=== PATIENT | female | born 1950 | race Caucasian/White ===

== ENCOUNTER 2017-03-25 18:09 | Inpatient (IN) ==
[2017-03-25] MEDS ORDERED: Acetaminophen 325 MG TABLET PO PRN ×3 (22:35→23:47)
[2017-03-25] MEDS ORDERED: 0.9 % Sodium Chloride 1,000 ML IVC SCH (23:45)
[2017-03-25] MEDS ORDERED: *HR* Morphine 2 MG/ML SYRINGE IVP PRN (23:47)
[2017-03-25] MEDS ORDERED: Ondansetron 4 MG/2 ML VIAL IVP PRN (23:47)
[2017-03-25] MEDS ORDERED: Naloxone 0.4 MG/ML INJ IVP PRN (23:47)
[2017-03-25] MEDS ORDERED: Mag Hydrox/Al Hydrox/Simeth 30 ML UDC PO PRN (23:47)
[2017-03-25] MEDS ORDERED: Dextrose Gel 15 GM PO PRN ×2 (23:53)
[2017-03-25] MEDS ORDERED: *HR* Dextrose 50 % in Water (Syg) 50 ML SYRINGE IVP PRN (23:53)
[2017-03-25] MEDS ORDERED: D5% in Water 1,000 ML IVC PRN (23:53)
[2017-03-25] MEDS ORDERED: Nitroglycerin 0.4 MG TAB.SUBL SL PRN (23:54)
[2017-03-25] MEDS ORDERED: Albuterol 2.5 MG/3 ML NEBULIZER IH PRN (23:54)
--- NOTE | 2017-03-26 00:05 | Internal Med History&Physical ---
Date of Encounter: 03/25/17 Time of Encounter: 23:50 Assessment and Plan (1) Pneumonia Current visit: Yes Status: Acute I could not find ER CXR report. Will order Bld CS and start IV Zosyn. Qualifiers: Pneumonia type: due to unspecified organism Laterality: unspecified laterality Lung location: unspecified part of lung Qualified Code(s): J18.9 - Pneumonia, unspecified organism (2) COPD (chronic obstructive pulmonary disease) Current visit: Yes Status: Acute Councelling provided to quit smoking. Duo Nebs ordered. Qualifiers: COPD type: COPD with acute exacerbation Qualified Code(s): J44.1 - Chronic obstructive pulmonary disease with (acute) exacerbation (3) UTI (urinary tract infection) Current visit: Yes Status: Acute Requesting blood and urine c/s. Start Zosyn. Patient says she is not allergic to PCN Qualifiers: Urinary tract infection type: site unspecified Hematuria presence: without hematuria Qualified Code(s): N39.0 - Urinary tract infection, site not specified (4) MANISHA (acute kidney injury) Current visit: Yes Status: Acute Creatinine 6.6. No previous record available and patient denies any prior hx. could be pre renal check US and morning hospitalist advice to call Nephrology in am. Request placed IVF challenge will be given, check CMP/Mg/PO4. (5) Diabetes 1.5, managed as type 2 Current visit: Yes Status: Acute Accu check qid with SSI. Hold home insulin for now. Internal Medicine - H&P: HPI Chief complaint: burning in urine, nausea, cough Admitted From: Home Plans for Post Hospital Care: Home History of present illness: Ms. Martinez is a 66 year old female pmhx significant for DM,HTN, COPD,GERD, Depression has hx of recurrent UTI and bladder surgeries. For last few days she has not been feeling good and has been having dysuria/oliguria. She also has Nausea/vomitting but no abdominal pain. She went to see her doctor who did not find any UTI. As she worsen she went to local ER and was noted to have pneumonia. Her UA shows leukocytes. No chest pain, fever, chills, syncope, hematuria or hempotysis. She has some cough and dyspnea now. Past Med Surg Social Fam HX - Past Medical History Medical history: coronary artery disease, CVA, diabetes, GERD, hyperlipidemia, hypertension, renal disease, other Psychiatric history: anxiety, depression, previous psychiatric hospitalization - Past Surgical History Surgical History: , cholecystectomy - Social History Smoking Status: Current every day smoker Smokeless Tobacco Status: No Alcohol use: none Drug use: none - Family History Mother Living Status: Age at : 68 Cause of : Uncontrolled DM Hx Family Cardiac Disorders: Yes (CHF, HTN, ID) Hx Family Respiratory Disorders: No Hx Family Cancer: No Hx Family GI Disorders: No Hx Family Genitourinary Disorders: No Hx Family Endocrine Disorder: Yes (DM) Hx Family Musculoskeletal Disorders: No Hx Family Neuromuscular Disorders: No Hx Family Neurologic Disorders: No Hx Family HEENT Disorders: No Hx Family Autoimmune Disorders: No Hx Family Reproductive Disorders: No Hx Family Psychosocial Disorders: No Hx Family Medical Disorders: No Internal Medicine - H&P: Meds Aspirin [Lo-Dose Aspirin EC] 81 mg PO DAILY 02/17/16 [History] Carvedilol [Coreg] 6.25 mg PO BID 02/17/16 [History] Insulin ASPART [NovoLOG] 0 unit SQ ACHS 02/17/16 [History] Insulin Glargine [Lantus] 20 unit SQ BID 02/17/16 [History] Lansoprazole [Prevacid] 30 mg PO DAILY 02/17/16 [History] Oxycodone HCl/Acetaminophen [Percocet 10-325 mg Tablet] 1 each PO QID 02/17/16 [ History] Pantoprazole Sodium [Protonix] 40 mg PO DAILY 02/17/16 [History] Promethazine [Phenergan] 25 mg PO Q6HR 02/17/16 [History] Amitriptyline [Elavil] 75 mg PO HS 11/15/16 [History] HYDROcodone/Acet 5/325 mg [Floyd 5-325 mg] 1 tab PO Q4H PRN #10 tab 11/15/16 [Rx ] Sulfamethoxazole/Trimeth DS [Bactrim DS] 1 each PO BID #20 tablet 11/15/16 [Rx] Humalog 03/25/17 [History] 3 Allergy/AdvReac Type Severity Reaction Status Date / Time gentamicin Allergy Unknown See Verified 11/15/16 20:24 Comments Penicillins Allergy Unknown See Verified 11/15/16 20:24 Comments sertraline [From Zoloft] Allergy Unknown See Verified 11/15/16 20:24 Comments tramadol Allergy Unknown See Verified 11/15/16 20:24 Comments trazodone Allergy Unknown See Verified 11/15/16 20:24 Comments atorvastatin [From Lipitor] Allergy tingling Verified 03/25/17 22:34 duloxetine [From Cymbalta] Allergy Numbness Verified 03/25/17 22:34 ketorolac [From Toradol] Allergy tingling Verified 03/25/17 22:34 morphine Allergy see comment Verified 03/25/17 22:34 ondansetron Allergy see comment Verified 03/25/17 22:34 [From Zofran (as hydrochloride)] prochlorperazine Allergy see comment Verified 03/25/17 22:34 All Systems PM: A 10-system review of systems was performed and is negative for pertinent findings except as documented above in the HPI. - Constitutional Constitutional: no chills, no fever(s), no night sweats - EENT Eyes: no change in vision, no discharge, no pain, no photophobia Ears: no ear discharge, no ear pain, no tinnitus Nose, mouth and throat: no dysphagia, no nasal discharge, no neck pain, no sore throat - Cardiovascular Cardiovascular ROS IM: no chest pain, no diaphoresis, no dyspnea, no lightheadedness, no palpitations, no syncope - Respiratory Respiratory: dyspnea, no wheezing, no excessive phlegm production - Gastrointestinal Gastrointestinal: nausea, vomiting, no abdominal pain, no diarrhea, no hematemesis, no hematochezia, no melena - Genitourinary Genitourinary: dysuria, no change in urinary stream, no flank pain, no hematuria - Musculoskeletal Musculoskeletal ROS IM: no numbness, no tingling - Integumentary Integumentary IM: no rash, no unusual bruising - Neurological Neurological ROS: no confusion, no convulsions, no focal weakness, no numbness, no tingling, no tremor(s) - Hematologic/Lymphatic Hematologic/Lymphatic: no easy bruising - Constitutional Vitals: Temp Pulse Resp BP Pulse Ox 98.2 F 107 18 156/85 97 03/25/17 23:11 03/25/17 23:11 03/25/17 23:11 03/25/17 23:11 12/09/17 23:11 General appearance: Present: A&O X 3, no acute distress, answers questions appropriately - Head Head exam: Present: atraumatic, normocephalic - Eye Eye exam: Present: PERRL, conjuntiva pink, sclera anicteric Pupils: Present: PERRL - Neck Neck exam general surgery: Present: supple, trachea midline. Absent: lymphadenopathy - Respiratory Respiratory exam: Present: CTAB, wheezes. Absent: accessory muscle use, rales, rhonchi - Cardiovascular Cardiovascular exam: Present: RRR, +S1, +S2. Absent: diastolic murmur, gallop, rubs, systolic murmur - GI/Abdominal GI/Abdominal exam: Present: normal bowel sounds, soft, no peritoneal signs. Absent: distended, tenderness - Extremities Exam Extremities exam: Present: warm, radial pulses palpable and symmetrical. Absent : calf tenderness, cyanotic, pedal edema - Neurological Exam Neurological exam: Present: CN II-XII intact, oriented X3, no focal deficits. Absent: pronater drift, facial droop, speech deficit - Skin Skin exam: Present: dry, intact
[2017-03-26] MEDS: Insulin LISPRO 300 UNITS/3 ML VIAL SQ SCH ×6 (00:28→21:40)
[2017-03-26] MEDS ORDERED: Piperacillin/Tazobactam 3.375 GM/200 ML BAG IVPB SCH (01:00)
[2017-03-26 01:48] LABS: Hemoglobin A1C 9.3 %
[2017-03-26] MEDS: Ipratropium/Albuterol Neb 3 ML IH SCH ×2 (03:33→04:18)
[2017-03-26 06:19] LABS: Basophils % 0.4 %; Eosinophils # 0.1 K/mcL (0.0-0.6); Eosinophils % 1.6 %; Hematocrit 29.5 % (35.3-44.9); Hemoglobin 9.8 g/dL (11.5-15.4); Immature Granulocytes % 1.8 % (0-4); Lymphocytes # 2.2 K/mcL (0.6-4.6); Lymphocytes % 30.3 %; Mean Corpuscular HGB Conc 33.2 g/dL (31.6-35.5); Mean Corpuscular Hemoglobin 31.2 pg (28.0-33.3); Mean Corpuscular Volume 93.9 fL (83.0-100.0); Mean Platelet Volume 12.7 fL (9.4-12.4); Monocytes # 0.5 K/mcL (0.0-1.3); Monocytes % 6.5 %; Neutrophils # 4.4 K/mcL (1.6-8.9); Platelet Count 162 K/mcL (140-400); Red Blood Count 3.14 M/mcL (3.82-4.97); Red Cell Distribution Width 12.2 % (11.5-14.5); Segmented Neutrophils % 59.4 %
[2017-03-26 06:21] LABS: Alanine Aminotransferase 11 Units/L (0-55); Albumin 2.6 g/dL (3.5-5.0); Albumin/Globulin Ratio 0.8 (1.1-2.2); Alkaline Phosphatase 120 Units/L (38-126); Aspartate Amino Transferase 13 Units/L (5-34); BUN/Creatinine Ratio 18 (6-26); Bilirubin,Total 0.3 mg/dL (0.2-1.2); Blood Urea Nitrogen 12 mg/dL (7-20); Calcium 7.8 mg/dL (8.6-10.8); Carbon Dioxide 24 mEq/L (19-29); Chloride 107 mEq/L (98-109); Globulin 3.4 g/dL (2.4-3.5); Glucose 121 mg/dL (70-99); Osmolality,Calculated 289 (280-300); Phosphorous 2.9 mg/dL (2.3-4.7); Potassium 3.6 mEq/L (3.5-4.5); Sodium 139 mEq/L (136-145); eGFR For African Americans > 60 (> 60); eGFR For Non-African Americans > 60 (> 60)
[2017-03-26] MEDS ORDERED: Ipratropium/Albuterol Neb 3 ML IH PRN (07:53)
[2017-03-26] MEDS: Aspirin Enteric Coated 81 MG Tablet PO SCH (08:19)
[2017-03-26 08:59] LABS: Blood Urea Nitrogen 11 mg/dL (7-20); Calcium 7.8 mg/dL (8.6-10.8); Carbon Dioxide 23 mEq/L (19-29); Chloride 106 mEq/L (98-109); Glucose 223 mg/dL (70-99); Osmolality,Calculated 292 (280-300); Potassium 3.7 mEq/L (3.5-4.5); Sodium 138 mEq/L (136-145)
[2017-03-26] MEDS ORDERED: Magnesium Sulfate 4 GM in D5% in Water 100 ML IVPB ONE (09:03)
[2017-03-26 09:05] LABS: BUN/Creatinine Ratio 16 (6-26); eGFR For African Americans > 60 (> 60); eGFR For Non-African Americans > 60 (> 60)
--- NOTE | 2017-03-26 09:06 | Internal Med Progress Note ---
<Bakari Stack - Last Filed: 03/26/17 09:04> Date of Encounter: 03/26/17 Time of Encounter: 09:04 - Assessment and plan (1) UTI (urinary tract infection) Current Visit: Yes Status: Acute Assessment and plan: Patient reports dysuria, UA reviewed from outside hospital that showed small leukocyte esterase. We will send for urine culture however the yield may be low given that she has had antibiotics already. We will discontinue Zosyn and start Rocephin 1 g daily. Patient has listed penicillin allergy but denies that she is allergic to penicillin. Qualifiers: Urinary tract infection type: site unspecified Hematuria presence: without hematuria Qualified Code(s): N39.0 - Urinary tract infection, site not specified (2) Pneumonia Current Visit: Yes Status: Ruled-out Assessment and plan: Patient was initially diagnosed with pneumonia however I feel that this is less likely. Imaging reviewed from outside hospital does not show evidence of pneumonia and the patient does not have clinical signs of pneumonia other than a mild cough. We will continue with Rocephin for UTI as discussed above, we will discontinue Zosyn. Qualifiers: Pneumonia type: due to unspecified organism Laterality: unspecified laterality Lung location: unspecified part of lung Qualified Code(s): J18.9 - Pneumonia, unspecified organism (3) MANISHA (acute kidney injury) Current Visit: Yes Status: Ruled-out Assessment and plan: Records reviewed from outside hospital that showed a creatinine of 6.69, however creatinine on morning labs was 0.65. We repeated this again as he wide variation results may be due to lab error and his repeat creatinine was 0.69. She has good urine output. Will cancel nephrology consultation and workup for MANISHA. At this point were presuming that the lab result at the outside hospital is possibly lab error. We will continue to monitor urine output and renal function daily. (4) Type 2 diabetes mellitus Current Visit: Yes Status: Acute Assessment and plan: Blood sugars elevated on presentation. Patient takes Lantus 20 units twice a day. We will start with daily dosing of Levemir and continue sliding scale insulin and will adjust regimen based on blood sugars. Qualifiers: Diabetes mellitus complication status: with hyperglycemia Diabetes mellitus mcc insulin use: with meterman use Qualified Code(s): E11.65 - Type 2 diabetes mellitus with hyperglycemia; Z79.4 - assisted (current) use of insulin; Z79.4 - intermediate frame tender (current) use of insulin; Z79.4 - assisted ( current) use of insulin; Z79.4 - assisted (current) use of insulin (5) COPD (chronic obstructive pulmonary disease) Current Visit: Yes Status: Acute Assessment and plan: Stable. No evidence of acute exacerbation. When necessary bronchodilators. Qualifiers: COPD type: COPD with acute exacerbation Qualified Code(s): J44.1 - Chronic obstructive pulmonary disease with (acute) exacerbation (6) Low back pain Current Visit: Yes Status: Acute Assessment and plan: Patient reports low back pain and tenderness in the paraspinal area. Imaging performed at the outside hospital shows significant arthritic changes. Will order PT/OT. Pain control with Tylenol and Percocet depending on pain level. Qualifiers: Chronicity: acute Back pain laterality: midline Sciatica presence: without sciatica Qualified Code(s): M54.5 - Low back pain - Subjective Interval history: Patient seen and examined at bedside. She reports low back pain and dysuria. She also reports a mild cough but that is improved. She denies fever, chills. - Constitutional Vitals: Temp Pulse Resp BP Pulse Ox 97.8 F 99 18 146/71 94 03/26/17 04:56 03/26/17 04:56 03/26/17 04:56 03/26/17 04:56 03/26/17 04:56 General appearance: Present: A&O X 3, no acute distress, answers questions appropriately - Respiratory Respiratory exam: Present: CTAB. Absent: rales, rhonchi, wheezes - Cardiovascular Cardiovascular exam: Present: RRR. Absent: gallop, rubs, systolic murmur - GI/Abdominal GI/Abdominal exam: Present: normal bowel sounds, soft. Absent: distended, tenderness - Extremities Exam Extremities exam: Present: warm. Absent: pedal edema, tenderness - Back Exam Back exam: Present: paraspinal tenderness - Neurological Exam Neurological exam: Present: alert, CN II-XII intact, oriented X3, no focal deficits Internal Medicine: Result - Labs CBC & Chem 7: 03/26/17 05:21 03/26/17 08:32 Labs: Short CBC 03/26/17 Range/Units 05:21 WBC 7.4 (4.3-11.1) K/mcL Hgb 9.8 L (11.5-15.4) g/dL Hct 29.5 L (35.3-44.9) % Plt Count 162 (140-400) K/mcL Neutrophils # 4.4 (1.6-8.9) K/mcL BMP 03/26/17 03/26/17 05:21 08:32 Sodium 139 138 Potassium 3.6 3.7 Chloride 107 106 Carbon Dioxide 24 23 BUN 12 11 Creatinine 0.65 Glucose 121 H 223 H Calcium 7.8 L 7.8 L Liver Function 03/26/17 Range/Units 05:21 Total Bilirubin 0.3 (0.2-1.2) mg/dL AST 13 (5-34) Units/L ALT 11 (0-55) Units/L Alkaline Phosphatase 120 (38-126) Units/L Albumin 2.6 L (3.5-5.0) g/dL Consult Discharge Plan - Plan Referrals: NONE,PCP [Primary Care Provider] - <Sean Moreira - Last Filed: 03/26/17 15:07> Date of Encounter: 03/26/17 - Constitutional Vitals: Temp Pulse Resp BP Pulse Ox 97.7 F 85 16 135/76 98 03/26/17 11:39 03/26/17 11:39 03/26/17 11:39 03/26/17 11:39 03/26/17 11:39 Internal Medicine: Result - Labs CBC & Chem 7: 03/26/17 05:21 03/26/17 08:32 Labs: Short CBC 03/26/17 Range/Units 05:21 WBC 7.4 (4.3-11.1) K/mcL Hgb 9.8 L (11.5-15.4) g/dL Hct 29.5 L (35.3-44.9) % Plt Count 162 (140-400) K/mcL Neutrophils # 4.4 (1.6-8.9) K/mcL BMP 03/26/17 03/26/17 05:21 08:32 Sodium 139 138 Potassium 3.6 3.7 Chloride 107 106 Carbon Dioxide 24 23 BUN 12 11 Creatinine 0.65 0.69 Glucose 121 H 223 H Calcium 7.8 L 7.8 L Liver Function 03/26/17 Range/Units 05:21 Total Bilirubin 0.3 (0.2-1.2) mg/dL AST 13 (5-34) Units/L ALT 11 (0-55) Units/L Alkaline Phosphatase 120 (38-126) Units/L Albumin 2.6 L (3.5-5.0) g/dL - Attending Attestation I conducted a face to face diagnostic evaluation of this patient and my medical decision-making was reviewed with the Resident Physician, Dr. Bakari Stack. I agree with the documented findings, disposition and treatment plan as described except to the extent set forth below: Laboratory data from [facility]. There medical record shows chemistry: Sodium 1:30 potassium 3.5, chloride 86, CO2 32, BUN 103, creatinine 6.69, glucose 125.. Kidney function was repeated twice today in our hospital and BUN was 12 and creatinine 0.6. I highly suspect that the BMP reported from [facility] was erroneous and we will contact the hospital to inform the ED staff. As such the patient does not have renal failure acute kidney injury. This has ruled out. She does have ground glass opacities in both lungs per CT of the chest and therefore we will treat her with ceftriaxone and azithromycin for community- acquired pneumonia.
[2017-03-26] MEDS: cefTRIAXone 1,000 MG in Water for inj. (sterile) 10 ML IVP SCH (09:46)
[2017-03-26] MEDS: Insulin DETEMIR 100 UNIT/ML X5UNITS SQ SCH (10:01)
[2017-03-26] MEDS: *HR* OxyCODONE/APAP 5/325 TABLET PO PRN ×3 (11:33→21:52)
[2017-03-26] MEDS ORDERED: Azithromycin 250 MG TABLET PO SCH (15:15)
[2017-03-27] MEDS ORDERED: *HR* OxyCODONE/APAP 5/325 TABLET PO ONE (00:05)
[2017-03-27 04:22] LABS: Basophils % 0.1 %; Hematocrit 29.4 % (35.3-44.9); Hemoglobin 10.2 g/dL (11.5-15.4); Immature Granulocytes % 1.4 % (0-4); Lymphocytes # 0.8 K/mcL (0.6-4.6); Lymphocytes % 9.9 %; Mean Corpuscular HGB Conc 34.7 g/dL (31.6-35.5); Mean Corpuscular Volume 92.2 fL (83.0-100.0); Mean Platelet Volume 11.9 fL (9.4-12.4); Monocytes # 0.2 K/mcL (0.0-1.3); Monocytes % 2.3 %; Neutrophils # 6.7 K/mcL (1.6-8.9); Platelet Count 179 K/mcL (140-400); Red Blood Count 3.19 M/mcL (3.82-4.97); Red Cell Distribution Width 12.1 % (11.5-14.5); Segmented Neutrophils % 86.3 %
[2017-03-27 04:28] LABS: BUN/Creatinine Ratio 15 (6-26); Blood Urea Nitrogen 11 mg/dL (7-20); Calcium 8.6 mg/dL (8.6-10.8); Carbon Dioxide 24 mEq/L (19-29); Chloride 102 mEq/L (98-109); Glucose 391 mg/dL (70-99); Magnesium 1.4 mg/dL (1.6-2.6); Osmolality,Calculated 294 (280-300); Potassium 4.3 mEq/L (3.5-4.5); Sodium 134 mEq/L (136-145); eGFR For African Americans > 60 (> 60); eGFR For Non-African Americans > 60 (> 60)
[2017-03-27 07:06] VITALS: BP 175/90
[2017-03-27] MEDS: Insulin DETEMIR 100 UNIT/ML X5UNITS SQ SCH (08:28)
[2017-03-27] MEDS: cefTRIAXone 1,000 MG in Water for inj. (sterile) 10 ML IVP SCH (08:29)
[2017-03-27] MEDS: Insulin LISPRO 300 UNITS/3 ML VIAL SQ SCH ×2 (08:29→14:50)
[2017-03-27] MEDS: Aspirin Enteric Coated 81 MG Tablet PO SCH (08:30)
[2017-03-27] MEDS: *HR* OxyCODONE/APAP 5/325 TABLET PO PRN (08:58)
[2017-03-27] MEDS ORDERED: levoFLOXacin 750 MG TABLET PO SCH (10:15)
--- NOTE | 2017-03-27 10:15 | Discharge Summary ---
<Bakari Stack - Last Filed: 03/27/17 10:11> Date of Encounter: 03/27/17 Time of Encounter: 10:11 - Discharge Diagnosis (1) UTI (urinary tract infection) Priority: Primary Status: Acute Qualifiers: Urinary tract infection type: site unspecified Hematuria presence: without hematuria Qualified Code(s): N39.0 - Urinary tract infection, site not specified (2) Pneumonia Priority: Primary Status: Acute Qualifiers: Pneumonia type: due to unspecified organism Laterality: unspecified laterality Lung location: unspecified part of lung Qualified Code(s): J18.9 - Pneumonia, unspecified organism (3) MANISHA (acute kidney injury) Priority: Secondary Status: Ruled-out (4) Type 2 diabetes mellitus Priority: Secondary Status: Chronic Qualifiers: Diabetes mellitus complication status: with hyperglycemia Diabetes mellitus alf insulin use: with termite exterminator helper use Qualified Code(s): E11.65 - Type 2 diabetes mellitus with hyperglycemia; Z79.4 - laborer marine terminal (current) use of insulin; Z79.4 - laborer marine terminal (current) use of insulin; Z79.4 - laborer marine terminal ( current) use of insulin; Z79.4 - laborer marine terminal (current) use of insulin (5) COPD (chronic obstructive pulmonary disease) Priority: Secondary Status: Chronic Qualifiers: COPD type: COPD with acute exacerbation Qualified Code(s): J44.1 - Chronic obstructive pulmonary disease with (acute) exacerbation (6) Low back pain Priority: Secondary Status: Chronic Qualifiers: Chronicity: acute Back pain laterality: midline Sciatica presence: without sciatica Qualified Code(s): M54.5 - Low back pain - Discharge Medications Prescriptions: levoFLOXacin [Levofloxacin] 750 mg PO DAILY #5 tablet Home Medications: Carvedilol [Coreg] 6.25 mg PO BID 02/17/16 [History] Insulin Glargine [Lantus] 20 unit SQ BID 02/17/16 [History] Oxycodone HCl/Acetaminophen [Percocet 10-325 mg Tablet] 1 tab PO QID 02/17/16 [ History] Promethazine [Phenergan] 25 mg PO Q6HR 02/17/16 [History] Amitriptyline [Elavil] 100 mg PO HS 11/15/16 [History] Insulin LISPRO [HumaLOG] 10 unit SQ BID 03/25/17 [History] Gabapentin [Neurontin] 400 mg PO TID 03/26/17 [History] Aspirin Enteric Coated [Aspirin EC] 81 mg PO DAILY tablet. 03/27/17 [Rx] Lansoprazole [Prevacid] 30 mg PO DAILY capsule. 03/27/17 [Rx] levoFLOXacin [Levofloxacin] 750 mg PO DAILY #5 tablet 03/27/17 [Rx] Allergies/Adverse Reactions: 3 Allergy/AdvReac Type Severity Reaction Status Date / Time gentamicin Allergy Unknown See Verified 03/26/17 10:06 Comments Penicillins Allergy Unknown See Verified 03/26/17 10:06 Comments sertraline [From Zoloft] Allergy Unknown See Verified 03/26/17 10:06 Comments tramadol Allergy Unknown See Verified 03/26/17 10:06 Comments trazodone Allergy Unknown See Verified 03/26/17 10:06 Comments atorvastatin [From Lipitor] Allergy tingling Verified 03/26/17 10:06 duloxetine [From Cymbalta] Allergy Numbness Verified 03/26/17 10:06 ketorolac [From Toradol] Allergy tingling Verified 03/26/17 10:06 morphine Allergy see comment Verified 03/26/17 10:06 ondansetron Allergy see comment Verified 03/26/17 10:06 [From Zofran (as hydrochloride)] prochlorperazine Allergy see comment Verified 03/26/17 10:06 Date of admission: 03/25/17 20:51 Primary care physician: PCP NONE Discharging clinician: Bakari Stack Anticipated date of discharge: 03/27/17 - Patient Status Disposition: Home, Self-Care Condition: Fair Functional capacity at discharge: independent ambulation Overall status at discharge: patient is progressing back to baseline - Discharge Instructions Follow Up With: NONE,PCP [Primary Care Provider] - (Please set up with PCP in 1 week) Additional Instructions: Please resume your home medications. Please take your antibiotic until completed. Please establish with a primary care physician. Please wear oxygen as needed. Please return for any neurologic symptoms. - Diet and Activity Activity: increase activity as tolerated Diet: diabetic diet, low salt diet Interval History: Patient seen and examined at bedside. She states that her back pain is bad today. She feels like her chronic low back pain just worse than normal. She is not receiving the same dosage of medication that she does take her home. She reports occasional shortness of breath and mild cough with sputum. She reports good urine output. She denies fever, chills. Hospital course: Ms. Martinez is a 66 year old female with history of type 2 diabetes, chronic low back pain presented from outside hospital with possible AK I and pneumonia. Patient was also having dysuria symptoms diagnosed UTI. On review of records or labs at outside hospital showed a creatinine of 6.69 however creatinine, this was rechecked and her kidney function was confirmed to be normal. Her concern for a lab error at outside hospital and this hospital was contacted regarding this. Review of CT scans showed possible groundglass opacities on chest CT per report from outside hospital as well as significant arthritis with inflammation on lumbar spine CT. Patient was initially treated with Rocephin and Zithromax. Will transition to Levaquin at discharge. Patient will be discharged home in stable condition. - Time Spent with Patient Total time spent providing and/or coordinating discharge services: Greater than 30 minutes - Constitutional Vitals: Temp Pulse Resp BP Pulse Ox 97.5 F L 91 16 175/90 95 03/27/17 07:00 03/27/17 07:00 03/27/17 07:00 03/27/17 07:00 03/27/17 07:00 General appearance: Present: A&O X 3, no acute distress, answers questions appropriately - Respiratory Respiratory exam: Present: wheezes (mild inspiratory wheezes). Absent: rales, respiratory distress, rhonchi, tachypnea - Cardiovascular Cardiovascular exam: Present: RRR. Absent: gallop, rubs, systolic murmur - GI/Abdominal GI/Abdominal exam: Present: normal bowel sounds, soft. Absent: distended, tenderness - Extremities Exam Extremities exam: Present: warm. Absent: pedal edema, tenderness - Neurological Exam Neurological exam: Present: alert, CN II-XII intact, oriented X3, no focal deficits - VTE Documentation of Mechanical Device: Intermittent pneumatic compression device <Sean Moreira - Last Filed: 03/27/17 18:51> Date of Encounter: 03/27/17 Date of admission: 03/25/17 20:51 Primary care physician: PCP NONE Hospital course: Ms. Martinez is a 66 year old female - Time Spent with Patient Total time spent providing and/or coordinating discharge services: - Constitutional Vitals: Temp Pulse Resp BP Pulse Ox 97.5 F L 91 16 175/90 95 03/27/17 07:00 03/27/17 07:00 03/27/17 07:00 03/27/17 07:00 03/27/17 07:00 - Attending Attestation I conducted a face to face diagnostic evaluation of this patient and my medical decision-making was reviewed with the Resident Physician, Dr. Bakari Stack. I agree with the documented findings, disposition and treatment plan as described except to the extent set forth below: Hospital course correction: The patient's creatinine at outside hospital was reported to be 6.69. BUN was reported to be 108. Upon arrival to our hospital her kidney function was checked and found to be normal with a creatinine of 0.65 and BUN of 11. A confirmatory retesting was done which supported our initial result. We contacted the referring hospital to report the discrepancy. Patient complains of back pain. She had a CT of the spine which showed degenerative disease. She received treatment with analgesics and dexamethasone. Her pain has improved. Kidney function is back to normal. She is medically stable for discharge home. I have personally spent 35 minutes coordinating this discharge.
[2017-03-27] MEDS ORDERED: Insulin LISPRO 300 UNITS/3 ML VIAL SQ SCH (12:00)
[2017-03-27] MEDS ORDERED: *HR* OxyCODONE/APAP 10/325 TABLET PO PRN (13:00)
[2017-03-27] MEDS ORDERED: Gabapentin 400 MG CAPSULE PO SCH (15:00)
[2017-03-27] MEDS ORDERED: Insulin DETEMIR 100 UNIT/ML X5UNITS SQ SCH (21:00)
[2017-03-28] MEDS ORDERED: *HR* Enoxaparin 40 MG/0.4 ML SYRINGE SQ SCH (06:00)
== END 2017-03-27 15:36 | disposition home or self-care (01) | DRG 190 ==
LOC: 2ANU 20:51
PROVIDERS: ADMIT Hospitalist; ATTEND Internal Medicine

== ENCOUNTER 2017-05-12 20:46 | Inpatient (IN) ==
[2017-05-12] MEDS ORDERED: *HR* Dextrose 50 % in Water (Syg) 50 ML SYRINGE IVP PRN (22:43)
[2017-05-12] MEDS ORDERED: Dextrose Gel 15 GM/37.5 ML TUBE PO PRN ×2 (22:43)
[2017-05-12] MEDS ORDERED: D5% in Water 1,000 ML IVC PRN (22:43)
[2017-05-12] MEDS ORDERED: Naloxone 0.4 MG/ML INJ IVP PRN (22:46)
[2017-05-12] MEDS ORDERED: Haloperidol Lactate 5 MG/ML VIAL IVP PRN (22:50)
--- NOTE | 2017-05-12 22:54 | Internal Med History&Physical ---
Date of Encounter: 05/12/17 Time of Encounter: 22:51 Assessment and Plan (1) Gastroenteritis Current visit: No Status: Acute symptoms likely related to viral gastroenteritis CT A/P w/o acute findings IVF conservative management watch symptoms (2) Acute hyponatremia Current visit: Yes Status: Acute IVF with K, trend Na, likely dehydration (3) Hypokalemia Current visit: Yes Status: Acute IVF with K , trend K (4) MANISHA (acute kidney injury) Current visit: No Status: Ruled-out due to n/v/d. IVF (5) Suicidal ideation Current visit: No Status: Acute due to acute stress of passing sitter, suicide watch consult psych (6) Type 2 diabetes mellitus Current visit: No Status: Chronic due to decrease PO intake, decrease lantus, add ISS Qualifiers: Qualified Code(s): E11.628 - Type 2 diabetes mellitus with other skin complications; Z79.4 - long term care administrator (current) use of insulin; Z79.4 - long term care administrator ( current) use of insulin; Z79.4 - long term care administrator (current) use of insulin; Z79.4 - jail (current) use of insulin Internal Medicine - H&P: HPI Chief complaint: N/V/D, suicidal History of present illness: Ms. Martinez is a 66 year old female who presents with 1) N/V/D found MANISHA, electrolyte abnormalities and 2) suicidal. Presents with 1-2 weeks hx of nausea, non-bloody emesis - billious 4-5 x daily and non-bloody diarrhea 5-6 x daily with associated anorexia, decrease PO intake. No improvement noted with time. Persistent symptoms leading to ED admission at [place]. Transferred here for further management. She loss her to leukemia on Mar and now lives with stepson and grandkids. Difficulty coping with acute stress. [place] like overdosing on insulin to end her life. CT/CT abd pelvis wo no iv no oral IMPRESSION: 1. No acute abnormality within the abdomen and pelvis. 2. Small hiatal hernia. Past Med Surg Social Fam HX - Past Medical History Medical history: coronary artery disease, CVA, diabetes, GERD, hyperlipidemia, hypertension, renal disease, other Psychiatric history: anxiety, depression, previous psychiatric hospitalization - Past Surgical History Surgical History: , cholecystectomy - Social History Smoking Status: Current every day smoker Packs per day: 1 Smokeless Tobacco Status: No Alcohol use: none Drug use: none - Family History Mother Living Status: Hx Family Cardiac Disorders: Yes (CHF, HTN, [place]) Hx Family Respiratory Disorders: No Hx Family Cancer: No Hx Family GI Disorders: No Hx Family Endocrine Disorder: Yes (DM) Hx Family Neuromuscular Disorders: No Hx Family Neurologic Disorders: No Hx Family HEENT Disorders: No Hx Family Autoimmune Disorders: No Father Hx Family Cardiac Disorders: Yes ([place]) Hx Family Medical Disorders: Yes (DVT) Internal Medicine - H&P: Meds Insulin Glargine [Lantus] 30 unit SQ BID 02/17/16 [History] Oxycodone HCl/Acetaminophen [Percocet 10-325 mg Tablet] 1 tab PO QID PRN [History] Promethazine [Phenergan] 25 mg PO Q6HR 02/17/16 [History] Amitriptyline [Elavil] 50 mg PO DAILY 11/15/16 [History] Gabapentin [Neurontin] 400 mg PO TID 03/26/17 [History] Amitriptyline [Elavil] 100 mg PO HS 05/12/17 [History] Insulin Regular Human [HumuLIN R] 0 unit SQ PER PKG DI 05/12/17 [History] Metoclopramide [Reglan] 10 mg PO QIDAC 05/12/17 [History] 3 Allergy/AdvReac Type Severity Reaction Status Date / Time gentamicin Allergy Unknown See Verified 03/26/17 10:06 Comments Penicillins Allergy Unknown See Verified 03/26/17 10:06 Comments sertraline [From Zoloft] Allergy Unknown See Verified 03/26/17 10:06 Comments tramadol Allergy Unknown See Verified 03/26/17 10:06 Comments trazodone Allergy Unknown See Verified 03/26/17 10:06 Comments atorvastatin [From Lipitor] Allergy tingling Verified 03/26/17 10:06 duloxetine [From Cymbalta] Allergy Numbness Verified 03/26/17 10:06 ketorolac [From Toradol] Allergy tingling Verified 03/26/17 10:06 morphine Allergy see comment Verified 03/26/17 10:06 ondansetron Allergy see comment Verified 03/26/17 10:06 [From Zofran (as hydrochloride)] prochlorperazine Allergy see comment Verified 03/26/17 10:06 All Systems PM: A 10-system review of systems was performed and is negative for pertinent findings except as documented above in the HPI. Review of systems: ROS 14 point review of systems reviewed as best as possible given presentation. Pertinent positive or negative as per HPI or otherwise reviewed as negative - Constitutional Vitals: Temp Pulse Resp BP Pulse Ox 98.5 F 105 14 134/73 96 05/12/17 22:05 05/12/17 22:05 05/12/17 22:05 05/12/17 22:05 05/12/17 22:05 Exam: General - AAO x 3 Psych - Appropriate affect/speech. No agitation Eyes - GABRIELA. Eye lids intact. No scleral icterus Neuro - No gross peripheral or central neuro deficits on inspection Heart - Sinus. RRR. S1 and S2 present. No added HS/murmurs appreciated. No elevated JVD appreciated. Lung - Adequate air entry b/l, No crackles/wheezes appreciated GI - Abdo scar. left raf-umbilical tenderness. No guarding or ridigity. No hepatosplenomegaly/ascites. BS+ - No CVA/suprapubic tenderness or palpable bladder distension Skin - Decrease skin turgor. No rash/petechiae/ecchymosis. Warm extremities MSK - Joints with normal ROM. No joint swellings
[2017-05-12] MEDS: 0.9 % Sodium Chloride w KCl 20 MEQ/1,000 ML MLS IVC SCH (23:28)
[2017-05-12] MEDS: *HR* OxyCODONE/APAP 10/325 TABLET PO PRN (23:30)
[2017-05-13] MEDS: Melatonin 3 MG TABLET PO PRN (00:21)
[2017-05-13] MEDS: Nicotine 21 MG PATCH.TD24 TD SCH ×2 (00:54→09:08)
[2017-05-13] MEDS: *HR* OxyCODONE/APAP 10/325 TABLET PO PRN ×3 (03:58→18:56)
[2017-05-13 04:33] LABS: Basophils % 0.5 %; Eosinophils % 0.5 %; Hematocrit 31.7 % (35.3-44.9); Hemoglobin 10.8 g/dL (11.5-15.4); Immature Granulocytes % 3.4 % (0-4); Lymphocytes # 2.6 K/mcL (0.6-4.6); Lymphocytes % 33.3 %; Mean Corpuscular HGB Conc 34.1 g/dL (31.6-35.5); Mean Corpuscular Hemoglobin 31.4 pg (28.0-33.3); Mean Corpuscular Volume 92.2 fL (83.0-100.0); Mean Platelet Volume 12.2 fL (9.4-12.4); Monocytes # 0.5 K/mcL (0.0-1.3); Monocytes % 5.7 %; Neutrophils # 4.5 K/mcL (1.6-8.9); Platelet Count 207 K/mcL (140-400); Red Blood Count 3.44 M/mcL (3.82-4.97); Red Cell Distribution Width 12.8 % (11.5-14.5); Segmented Neutrophils % 56.6 %
[2017-05-13 05:45] LABS: BUN/Creatinine Ratio 58 (6-26); Blood Urea Nitrogen 45 mg/dL (8-23); Calcium 7.6 mg/dL (8.6-10.3); Carbon Dioxide 25 mEq/L (23-29); Chloride 97 mEq/L (98-107); Glucose 232 mg/dL (70-105); Magnesium 1.4 mg/dL (1.6-2.6); Osmolality,Calculated 293 (280-300); Sodium 132 mEq/L (136-145); eGFR For African Americans > 60 (> 60); eGFR For Non-African Americans > 60 (> 60)
[2017-05-13] MEDS ORDERED: *HR* Enoxaparin 30 MG/0.3 ML SYRINGE SQ SCH (06:00)
[2017-05-13] MEDS ORDERED: NON-FORMULARY MEDICATION 1 EACH EACH (Insulin Glargine [Lantus] 20 UNIT) SQ SCH (09:00)
[2017-05-13] MEDS: Gabapentin 400 MG CAPSULE PO SCH ×3 (09:08→20:24)
[2017-05-13] MEDS: Insulin LISPRO 300 UNITS/3 ML VIAL SQ SCH ×4 (09:08→20:24)
[2017-05-13] MEDS: 0.9 % Sodium Chloride w KCl 20 MEQ/1,000 ML MLS IVC SCH ×3 (09:10→18:56)
[2017-05-13] MEDS: Insulin DETEMIR 100 UNIT/ML X5UNITS SQ SCH ×2 (09:12→20:24)
--- NOTE | 2017-05-13 09:31 | Internal Med Progress Note ---
Date of Encounter: 05/13/17 Time of Encounter: 09:00 - Assessment and plan (1) Acute hyponatremia Current Visit: Yes Status: Acute Assessment and plan: Suspect this is due to hypovolemic hyponatremia. We will continue IV fluids in the form of 0.9 normal saline. Repeat BMP in the morning. (2) Hypokalemia Current Visit: Yes Status: Acute Assessment and plan: Likely due to emesis and decreased oral intake. Replacement ordered, monitor. Repeat BMP in the morning (3) Anxiety Current Visit: No Status: Acute Assessment and plan: Continue current treatment. She is calm now. (4) Diabetes 1.5, managed as type 2 Current Visit: No Status: Acute Assessment and plan: Continue basal bolus insulin, monitor (5) Major depressive disorder, recurrent severe without psychotic features Current Visit: No Status: Acute Assessment and plan: She is on Elavil but I do not see any other antidepressants. Can consider starting, or alternatively have her follow-up with her primary care provider. We will follow. (6) Suicidal ideation Current Visit: No Status: Acute Assessment and plan: Likely acute bereavement due to recent loss of her . She is currently denying suicidality. We will continue to monitor. (7) COPD (chronic obstructive pulmonary disease) Current Visit: No Status: Chronic Qualifiers: COPD type: COPD with acute exacerbation Qualified Code(s): J44.1 - Chronic obstructive pulmonary disease with (acute) exacerbation - Time Spent With Patient 25 - 35 minutes - Subjective Interval history: Ms. Martinez is a 66 year old female who presents with 1) N/V/D found MANISHA, electrolyte abnormalities and 2) suicidal. Presents with 1-2 weeks hx of nausea, non-bloody emesis - billious 4-5 x daily and non-bloody diarrhea 5-6 x daily with associated anorexia, decrease PO intake. No improvement noted with time. Persistent symptoms leading to ED admission at [place]. Transferred here for further management. She loss her to leukemia on Mar and now lives with stepson and grandkids. Difficulty coping with acute stress. [place] like overdosing on insulin to end her life. CT/CT abd pelvis wo no iv no oral IMPRESSION: 1. No acute abnormality within the abdomen and pelvis. 2. Small hiatal hernia. 05/13: Patient states she is feeling better this morning she has been receiving IV fluids. She still complains of some mild pain in her left upper quadrant. No further nausea or vomiting. No fevers or chills. No bowel movement since admission. No chest pain or shortness of breath. I asked if she still felt suicidal and she said no, that she was overreacting due to not feeling well. She denies any suicidal ideations whatsoever. She does relate being saddened by the recent of her . - Constitutional Vitals: Temp Pulse Resp BP Pulse Ox 97.9 F 89 18 108/65 96 05/13/17 08:08 05/13/17 08:08 05/13/17 08:08 05/13/17 08:08 05/13/17 08:08 General appearance: Present: A&O X 3, no acute distress - Head Head exam: Present: atraumatic, normocephalic - Eye Eye exam: Present: conjuntiva pink, sclera anicteric Pupils: Present: PERRL - ENT ENT exam: Present: mucous membranes dry - Neck Neck exam general surgery: Present: supple, trachea midline. Absent: lymphadenopathy - Respiratory Respiratory exam: Present: CTAB. Absent: accessory muscle use, rales, rhonchi, wheezes - Cardiovascular Cardiovascular exam: Present: RRR, +S1, +S2. Absent: diastolic murmur, gallop, rubs, systolic murmur - GI/Abdominal GI/Abdominal exam: Present: normal bowel sounds, soft, tenderness (Mild tenderness in the left upper quadrant.), no peritoneal signs. Absent: distended - Extremities Exam Extremities exam: Present: warm, radial pulses palpable and symmetrical. Absent : calf tenderness, cyanotic, pedal edema - Skin Skin exam: Present: dry, intact Additional comments: Slightly diminished turgor Internal Medicine: Result - Labs CBC & Chem 7: 05/13/17 04:20 05/13/17 04:20 Labs: Short CBC 05/13/17 Range/Units 04:20 WBC 7.9 (4.3-11.1) K/mcL Hgb 10.8 L D (11.5-15.4) g/dL Hct 31.7 L (35.3-44.9) % Plt Count 207 (140-400) K/mcL Neutrophils # 4.5 (1.6-8.9) K/mcL BMP 05/13/17 04:20 Sodium 132 L Potassium 3.0 L Chloride 97 L Carbon Dioxide 25 BUN 45 H Creatinine 0.77 Glucose 232 H Calcium 7.6 L Consult Discharge Plan - Plan Referrals: NONE,PCP [Primary Care Provider] -
--- NOTE | 2017-05-13 16:40 | Consult Note ---
Date of Encounter: 05/13/17 Time of Encounter: 15:00 Assessment & Recommendation (1) Major depressive disorder, recurrent severe without psychotic features Current visit: No Status: Acute Assessment & Recommendation: See above note History of Present Illness Requesting Physician: Issa Ortiz Reason for consult: depression History of present illness: Ms. Martinez is a 66 year old female She lives in [place] which is in [facility]. Chief complaint: I did not want to live I thought about taking an overdose of insulin but I do not want to do that. History of present illness: The patient has been treated in the past for depression. Her 03/28/2017. The patient and her had the same birthday [birth year]. She felt that her life was not going very well and thought about taking an overdose. Currently she has thought that this was not a good idea and has no plans to kill herself. The patient can identify some reasons such as being a great-grandmother over to 9-month-old girls and the 3 [place] terriers that live in her home. Nonetheless health problems and limited her ability to do some of the things that she likes although she would if she could specifically planting ochoa and enjoying cohoa. The patient has had some treatment for depression but her sleep is poor she is eating poor she has trouble with concentration and she is not feeling good with the upcoming anniversary. She has no sabianist involvement as she does not have the transportation is stopped driving. She says she does not have a primary care physician who bought has been prescribed several medicines in the past including allergies to Zoloft tramadol and Cymbalta. Past medical history: Surgeries include 2 C-sections one bladder stone hysterectomy and gallbladder. Illnesses include diabetes type 1 and low back pain it is important to note that she is on Percocet. Allergies include Zoloft tramadol mirtazapine. Family history is significant for father with psychiatric illness he was a POW for 3 years in [place]. There is no he did drink heavily but there is no history of suicide or drug use and other members of the family. Social history the patient was for 50 years she has 1 child with him. 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 The patient review of systems includes injury hours but her house has not been well while health problems To she said that she would like to plan ochoa if she could. The patient reports that she has been on amitriptyline. Recommendation: This patient does not require one-to-one supervision. She is not at risk for suicide based on my assessment. Amitriptyline 100 mg can be used to treat depression but in a patient who is 67 for significant health problems it should be avoided this is because of the risk of anticholinergic toxicity. It is also on the beers list of medicines to be avoided. An alternative treatment is mirtazapine at 7.5 mg daily at bedtime. This medicine can be started and might help with appetite it is not likely to have the same allergic reactions as some the other antidepressants that she saw. The patient could be followed CPAP for major depression and doses of 7.5, 15 and 30 mg of mirtazapine could be considered. Side effects including nausea sedation and weight gain CC: Issa Ortiz N &V Past Med Surg Social Fam HX - Past Medical History Medical history: coronary artery disease, CVA, diabetes, GERD, hyperlipidemia, hypertension, renal disease, other - Past Psychiatric History Psychiatric history: Reports: depression Family psychiatric history: Yes Family History of Suicide: None - Past Surgical History Surgical History: , cholecystectomy - Social History Smoking Status: Current every day smoker Smokeless Tobacco Status: No Alcohol use: none Drug use: none - Family History Mother Living Status: Hx Family Cardiac Disorders: Yes (CHF, HTN, [place]) Hx Family Respiratory Disorders: No Hx Family Cancer: No Hx Family GI Disorders: No Hx Family Endocrine Disorder: Yes (DM) Hx Family Neuromuscular Disorders: No Hx Family Neurologic Disorders: No Hx Family HEENT Disorders: No Hx Family Autoimmune Disorders: No Father Hx Family Cardiac Disorders: Yes ([place]) Hx Family Medical Disorders: Yes (DVT) Medications & Allergies Insulin Glargine [Lantus] 30 unit SQ BID 02/17/16 [History] Oxycodone HCl/Acetaminophen [Percocet 10-325 mg Tablet] 1 tab PO QID PRN [History] Promethazine [Phenergan] 25 mg PO Q6HR 02/17/16 [History] Amitriptyline [Elavil] 50 mg PO DAILY 11/15/16 [History] Gabapentin [Neurontin] 400 mg PO TID 03/26/17 [History] Amitriptyline [Elavil] 100 mg PO HS 05/12/17 [History] Insulin Regular Human [HumuLIN R] 0 unit SQ PER PKG DI 05/12/17 [History] Metoclopramide [Reglan] 10 mg PO QIDAC 05/12/17 [History] 3 Allergy/AdvReac Type Severity Reaction Status Date / Time gentamicin Allergy Unknown See Verified 03/26/17 10:06 Comments Penicillins Allergy Unknown See Verified 03/26/17 10:06 Comments sertraline [From Zoloft] Allergy Unknown See Verified 03/26/17 10:06 Comments tramadol Allergy Unknown See Verified 03/26/17 10:06 Comments trazodone Allergy Unknown See Verified 03/26/17 10:06 Comments atorvastatin [From Lipitor] Allergy tingling Verified 03/26/17 10:06 duloxetine [From Cymbalta] Allergy Numbness Verified 03/26/17 10:06 ketorolac [From Toradol] Allergy tingling Verified 03/26/17 10:06 morphine Allergy see comment Verified 03/26/17 10:06 ondansetron Allergy see comment Verified 03/26/17 10:06 [From Zofran (as hydrochloride)] prochlorperazine Allergy see comment Verified 03/26/17 10:06 Review of Systems Psychiatric: Reports: abnormal sleep pattern, change in appetite, difficulty concentrating Mental Status Exam Patient orientation: Yes Person, Yes Time, Yes Place Level of alertness: Alert Patient appearance: Appropriate, Thin Behavior: nervous Psychomotor activity: Slowed Eye contact: Maintains Eye Contact Mood description: Depressed Affect description: congruent with mood Speech pattern: Normal rate Speech volume: Normal Thought process: Logical, Linear Thought content: Yes Intact Attention span: Capable of Focused Attention Memory description: Grossly Intact Patient reliability: Reliable Historian Intelligence estimate: Average Judgment: Fair Results - Vital Signs Vital signs: Temp Pulse Resp BP Pulse Ox 98.8 F 93 15 118/69 93 05/13/17 12:31 05/13/17 12:31 05/13/17 12:31 05/13/17 12:31 05/13/17 12:31 - Labs Labs: Laboratory Last Values WBC 7.9 K/mcL (4.3-11.1) 05/13/17 04:20 RBC 3.44 M/mcL (3.82-4.97) L 05/13/17 04:20 Hgb 10.8 g/dL (11.5-15.4) L D 05/13/17 04:20 Hct 31.7 % (35.3-44.9) L 05/13/17 04:20 MCV 92.2 fL (83.0-100.0) 05/13/17 04:20 MCH 31.4 pg (28.0-33.3) 05/13/17 04:20 MCHC 34.1 g/dL (31.6-35.5) 05/13/17 04:20 RDW 12.8 % (11.5-14.5) 05/13/17 04:20 Plt Count 207 K/mcL (140-400) 05/13/17 04:20 MPV 12.2 fL (9.4-12.4) 05/13/17 04:20 Immature Gran % 3.4 % (0-4) 05/13/17 04:20 Seg Neutrophils % 56.6 % 05/13/17 04:20 Lymphocytes % 33.3 % 05/13/17 04:20 Monocytes % 5.7 % 05/13/17 04:20 Eosinophils % 0.5 % 05/13/17 04:20 Basophils % 0.5 % 05/13/17 04:20 Neutrophils # 4.5 K/mcL (1.6-8.9) 05/13/17 04:20 Lymphocytes # 2.6 K/mcL (0.6-4.6) 05/13/17 04:20 Monocytes # 0.5 K/mcL (0.0-1.3) 05/13/17 04:20 Eosinophils # 0.0 K/mcL (0.0-0.6) 05/13/17 04:20 Basophils # 0.0 K/mcL (0.0-0.2) 05/13/17 04:20 Sodium 132 mEq/L (136-145) L 05/13/17 04:20 Potassium 3.0 mEq/L (3.5-5.1) L 05/13/17 04:20 Chloride 97 mEq/L (98-107) L 05/13/17 04:20 Carbon Dioxide 25 mEq/L (23-29) 05/13/17 04:20 BUN 45 mg/dL (8-23) H 05/13/17 04:20 Creatinine 0.77 mg/dL (0.60-1.20) 05/13/17 04:20 Est GFR ( Amer) > 60 (> 60) 05/13/17 04:20 Est GFR (Non-Af Amer) > 60 (> 60) 05/13/17 04:20 BUN/Creatinine Ratio 58 (6-26) H 05/13/17 04:20 Glucose 232 mg/dL (70-105) H 05/13/17 04:20 POC Glucose 86 (58-89) 05/13/17 12:13 Calculated Osmolality 293 (280-300) 05/13/17 04:20 Calcium 7.6 mg/dL (8.6-10.3) L 05/13/17 04:20 Magnesium 1.4 mg/dL (1.6-2.6) L 05/13/17 04:20 Consult Discharge Plan - Plan Referrals: NONE,PCP [Primary Care Provider] -
[2017-05-14] MEDS: 0.9 % Sodium Chloride w KCl 20 MEQ/1,000 ML MLS IVC SCH ×3 (02:43→23:50)
[2017-05-14 04:26] LABS: Basophils # 0.1 K/mcL (0.0-0.2); Basophils % 0.6 %; Eosinophils % 0.3 %; Hematocrit 30.4 % (35.3-44.9); Hemoglobin 10.2 g/dL (11.5-15.4); Immature Granulocytes % 2.5 % (0-4); Lymphocytes # 1.6 K/mcL (0.6-4.6); Lymphocytes % 21.1 %; Mean Corpuscular HGB Conc 33.6 g/dL (31.6-35.5); Mean Corpuscular Hemoglobin 31.5 pg (28.0-33.3); Mean Corpuscular Volume 93.8 fL (83.0-100.0); Mean Platelet Volume 11.8 fL (9.4-12.4); Monocytes # 0.4 K/mcL (0.0-1.3); Monocytes % 5.7 %; Neutrophils # 5.4 K/mcL (1.6-8.9); Platelet Count 188 K/mcL (140-400); Red Blood Count 3.24 M/mcL (3.82-4.97); Red Cell Distribution Width 12.6 % (11.5-14.5); Segmented Neutrophils % 69.8 %
[2017-05-14 06:05] LABS: BUN/Creatinine Ratio 37 (6-26); Blood Urea Nitrogen 19 mg/dL (8-23); Calcium 7.9 mg/dL (8.6-10.3); Carbon Dioxide 26 mEq/L (23-29); Chloride 105 mEq/L (98-107); Glucose 96 mg/dL (70-105); Magnesium 1.4 mg/dL (1.6-2.6); Osmolality,Calculated 288 (280-300); Potassium 3.4 mEq/L (3.5-5.1); Sodium 138 mEq/L (136-145); eGFR For African Americans > 60 (> 60); eGFR For Non-African Americans > 60 (> 60)
[2017-05-14] MEDS: *HR* Enoxaparin 40 MG/0.4 ML SYRINGE SQ SCH (06:19)
[2017-05-14] MEDS: *HR* OxyCODONE/APAP 10/325 TABLET PO PRN ×3 (06:22→21:01)
[2017-05-14] MEDS: Nicotine 21 MG PATCH.TD24 TD SCH (08:15)
[2017-05-14] MEDS: Gabapentin 400 MG CAPSULE PO SCH ×3 (08:15→21:01)
[2017-05-14] MEDS: Insulin LISPRO 300 UNITS/3 ML VIAL SQ SCH ×4 (08:16→20:56)
[2017-05-14] MEDS: Insulin DETEMIR 100 UNIT/ML X5UNITS SQ SCH ×2 (09:12→21:02)
--- NOTE | 2017-05-14 14:00 | Internal Med Progress Note ---
Date of Encounter: 05/14/17 Time of Encounter: 11:00 - Assessment and plan (1) Acute hyponatremia Current Visit: Yes Status: Acute Assessment and plan: Suspect this is due to hypovolemic hyponatremia. We will continue IV fluids in the form of 0.9 normal saline. Repeat BMP in the morning. 05/14: Resolved (2) Hypokalemia Current Visit: Yes Status: Acute Assessment and plan: Likely due to emesis and decreased oral intake. Replacement ordered, monitor. Repeat BMP in the morning 05/14: Remains low, replacement ordered. Monitor. (3) Anxiety Current Visit: No Status: Acute Assessment and plan: Continue current treatment. She is calm now. (4) Diabetes 1.5, managed as type 2 Current Visit: No Status: Acute Assessment and plan: Continue basal bolus insulin, monitor 05/14: Glycemic control improved, monitor (5) Major depressive disorder, recurrent severe without psychotic features Current Visit: No Status: Acute Assessment and plan: She is on Elavil but I do not see any other antidepressants. Can consider starting, or alternatively have her follow-up with her primary care provider. We will follow. 05/14: Psychiatry recommendations noted. Patient is on Celexa and Remeron now. (6) Suicidal ideation Current Visit: No Status: Acute Assessment and plan: Likely acute bereavement due to recent loss of her . She is currently denying suicidality. We will continue to monitor. 05/14: Psychiatry input is greatly appreciated. Patient is deemed not suicidal. (7) COPD (chronic obstructive pulmonary disease) Current Visit: No Status: Chronic Assessment and plan: Stable, doubt acute exacerbation. Qualifiers: COPD type: unspecified COPD Qualified Code(s): J44.9 - Chronic obstructive pulmonary disease, unspecified - Time Spent With Patient 25 - 35 minutes - Subjective Interval history: Ms. Martinez is a 66 year old female who presents with 1) N/V/D found MANISHA, electrolyte abnormalities and 2) suicidal. Presents with 1-2 weeks hx of nausea, non-bloody emesis - billious 4-5 x daily and non-bloody diarrhea 5-6 x daily with associated anorexia, decrease PO intake. No improvement noted with time. Persistent symptoms leading to ED admission at [place]. Transferred here for further management. She loss her to leukemia on Mar and now lives with stepson and grandkids. Difficulty coping with acute stress. [place] like overdosing on insulin to end her life. CT/CT abd pelvis wo no iv no oral IMPRESSION: 1. No acute abnormality within the abdomen and pelvis. 2. Small hiatal hernia. 05/13: Patient states she is feeling better this morning she has been receiving IV fluids. She still complains of some mild pain in her left upper quadrant. No further nausea or vomiting. No fevers or chills. No bowel movement since admission. No chest pain or shortness of breath. I asked if she still felt suicidal and she said no, that she was overreacting due to not feeling well. She denies any suicidal ideations whatsoever. She does relate being saddened by the recent of her . 05/14: Patient states she feels improved. Continues to have pain in the left upper quadrant. She is starting to tolerate orals more and is now targeting a full diet. She remains hemodynamically stable. She denies any nausea, vomiting , diarrhea. No fevers or chills. No chest pain or shortness of breath. Magnesium and potassium remained low and are being replaced. I tried to evaluation is appreciated, Remeron is started, she is not felt to be suicidal. - Constitutional Vitals: Temp Pulse Resp BP Pulse Ox 97.9 F 90 14 116/57 94 05/14/17 10:55 05/14/17 10:55 05/14/17 10:55 05/14/17 10:55 05/14/17 10:55 General appearance: Present: A&O X 3, no acute distress - Head Head exam: Present: atraumatic, normocephalic - Eye Eye exam: Present: sclera anicteric - Neck Neck exam general surgery: Present: supple, trachea midline. Absent: lymphadenopathy - Respiratory Respiratory exam: Present: CTAB. Absent: accessory muscle use, rales, rhonchi, wheezes - Cardiovascular Cardiovascular exam: Present: RRR, +S1, +S2. Absent: diastolic murmur, gallop, rubs, systolic murmur - GI/Abdominal GI/Abdominal exam: Present: normal bowel sounds, soft, tenderness (Left upper quadrant tenderness, mild, no rebound or guarding.), no peritoneal signs. Absent: distended - Extremities Exam Extremities exam: Present: warm, radial pulses palpable and symmetrical. Absent : calf tenderness, cyanotic, pedal edema - Neurological Exam Neurological exam: Present: CN II-XII intact, oriented X3, no focal deficits. Absent: pronater drift, facial droop, speech deficit - Skin Skin exam: Present: dry, intact Internal Medicine: Result - Labs CBC & Chem 7: 05/14/17 04:05 05/14/17 04:05 Labs: Short CBC 05/14/17 Range/Units 04:05 WBC 7.7 (4.3-11.1) K/mcL Hgb 10.2 L (11.5-15.4) g/dL Hct 30.4 L (35.3-44.9) % Plt Count 188 (140-400) K/mcL Neutrophils # 5.4 (1.6-8.9) K/mcL BMP 05/14/17 04:05 Sodium 138 Potassium 3.4 L Chloride 105 Carbon Dioxide 26 BUN 19 Creatinine 0.51 L Glucose 96 Calcium 7.9 L Consult Discharge Plan - Plan Referrals: NONE,PCP [Primary Care Provider] -
[2017-05-14] MEDS: Metoclopramide 10 MG/2 ML VIAL IVP PRN (14:59)
[2017-05-15] MEDS: *HR* Enoxaparin 40 MG/0.4 ML SYRINGE SQ SCH (05:27)
[2017-05-15] MEDS: 0.9 % Sodium Chloride w KCl 20 MEQ/1,000 ML MLS IVC SCH ×2 (07:04→08:50)
[2017-05-15] MEDS: Insulin DETEMIR 100 UNIT/ML X5UNITS SQ SCH ×2 (08:44→21:04)
[2017-05-15] MEDS: Gabapentin 400 MG CAPSULE PO SCH ×3 (08:45→21:05)
[2017-05-15] MEDS: *HR* OxyCODONE/APAP 10/325 TABLET PO PRN ×2 (08:45→21:05)
[2017-05-15] MEDS: Nicotine 21 MG PATCH.TD24 TD SCH (08:47)
[2017-05-15] MEDS: Insulin LISPRO 300 UNITS/3 ML VIAL SQ SCH ×4 (08:53→21:03)
[2017-05-15 09:57] LABS: Basophils # 0.1 K/mcL (0.0-0.2); Basophils % 0.8 %; Eosinophils # 0.1 K/mcL (0.0-0.6); Eosinophils % 1.5 %; Hematocrit 31.6 % (35.3-44.9); Hemoglobin 10.5 g/dL (11.5-15.4); Immature Granulocytes % 3.5 % (0-4); Lymphocytes # 2.3 K/mcL (0.6-4.6); Lymphocytes % 28.4 %; Mean Corpuscular HGB Conc 33.2 g/dL (31.6-35.5); Mean Corpuscular Hemoglobin 31.5 pg (28.0-33.3); Mean Corpuscular Volume 94.9 fL (83.0-100.0); Mean Platelet Volume 11.9 fL (9.4-12.4); Monocytes # 0.5 K/mcL (0.0-1.3); Monocytes % 6.3 %; Neutrophils # 4.8 K/mcL (1.6-8.9); Platelet Count 197 K/mcL (140-400); Red Blood Count 3.33 M/mcL (3.82-4.97); Red Cell Distribution Width 12.8 % (11.5-14.5); Segmented Neutrophils % 59.5 %
[2017-05-15 12:48] LABS: BUN/Creatinine Ratio 16 (6-26); Blood Urea Nitrogen 7 mg/dL (8-23); Calcium 8.2 mg/dL (8.6-10.3); Carbon Dioxide 21 mEq/L (23-29); Chloride 105 mEq/L (98-107); Glucose 170 mg/dL (70-105); Magnesium 1.1 mg/dL (1.6-2.6); Osmolality,Calculated 278 (280-300); Potassium 4.8 mEq/L (3.5-5.1); Sodium 133 mEq/L (136-145); eGFR For African Americans > 60 (> 60); eGFR For Non-African Americans > 60 (> 60)
[2017-05-15] MEDS: Metoclopramide 10 MG/2 ML VIAL IVP PRN (14:33)
--- NOTE | 2017-05-15 17:27 | Internal Med Progress Note ---
Date of Encounter: 05/15/17 Time of Encounter: 11:00 - Assessment and plan (1) Acute hyponatremia Current Visit: Yes Status: Acute Assessment and plan: Suspect this is due to hypovolemic hyponatremia. We will continue IV fluids in the form of 0.9 normal saline. Repeat BMP in the morning. Resolved d/c IVF (2) Electrolyte abnormality Current Visit: Yes Status: Acute Assessment and plan: due to N/V Improving still low Mg cont replacing cont monitoring (3) Suicidal ideation Current Visit: No Status: Acute Assessment and plan: No more suicidal ideation Psych evaluated the pt and made recommendations for medication cleared from [facility] (4) Major depressive disorder, recurrent severe without psychotic features Current Visit: No Status: Acute Assessment and plan: Pt was evaluated by james and recommend to wean her off the Elavil and start her on Mirtazapne so started tapering - cut down on Elavil to 50mg PO daily x 7 days then 25mg PO daily x 7 days and stop Started on Mirtazapine 15mg HS (5) MANISHA (acute kidney injury) Current Visit: No Status: Acute Assessment and plan: Improved.. Initial Cr 1.23 upon admission (6) Hypokalemia Current Visit: Yes Status: Acute Assessment and plan: Likely due to emesis and decreased oral intake Improved (7) Diabetes mellitus Current Visit: Yes Status: Chronic Assessment and plan: cont ISS + Levemir Qualifiers: Qualified Code(s): E11.9 - Type 2 diabetes mellitus without complications - Subjective Interval history: Ms. Martinez is a 66 year old female with known coronary artery disease, CVA, diabetes, GERD, hyperlipidemia, hypertension, and depression who presented to ER with N/V/D found to be in MANISHA, electrolyte abnormalities and suicidal. She loss her to leukemia on Mar and now lives with stepson and grandkids. Difficulty coping with acute stress. [place] like overdosing on insulin to end her life. Pt was admitted in the hospital and started her on IV hydration and supportive care. Her symptoms improved now. She denied any CP / SOB. She denied any suicidal ideation / no hallucinations. She is A, A< O x 3 - Constitutional Vitals: Temp Pulse Resp BP Pulse Ox 98.3 F 97 14 126/68 95 05/15/17 15:40 05/15/17 15:40 05/15/17 15:40 05/15/17 15:40 05/15/17 15:40 General appearance: Present: A&O X 3, no acute distress, answers questions appropriately - Head Head exam: Present: atraumatic, normal inspection - Neck Neck exam general surgery: Present: supple - Respiratory Respiratory exam: Present: decreased breath sounds. Absent: rales, respiratory distress, rhonchi, wheezes - Cardiovascular Cardiovascular exam: Present: RRR, +S1, +S2. Absent: tachycardia - GI/Abdominal GI/Abdominal exam: Present: normal bowel sounds, soft. Absent: rebound, rigid, tenderness - Extremities Exam Extremities exam: Absent: calf tenderness, pedal edema, tenderness - Back Exam Back exam: Absent: CVA tenderness (L), CVA tenderness (R) - Neurological Exam Neurological exam: Present: alert, oriented X3 - Psychiatric Psychiatric exam: Present: normal affect, normal mood. Absent: flat affect, homicidal ideation, suicidal ideation Internal Medicine: Result - Labs CBC & Chem 7: 05/15/17 09:30 05/15/17 09:30 Labs: Short CBC 05/15/17 Range/Units 09:30 WBC 8.0 (4.3-11.1) K/mcL Hgb 10.5 L (11.5-15.4) g/dL Hct 31.6 L (35.3-44.9) % Plt Count 197 (140-400) K/mcL Neutrophils # 4.8 (1.6-8.9) K/mcL BMP 05/15/17 09:30 Sodium 133 L Potassium 4.8 Chloride 105 Carbon Dioxide 21 L BUN 7 L Creatinine 0.44 L Glucose 170 H Calcium 8.2 L Consult Discharge Plan - Plan Referrals: NONE,PCP [Primary Care Provider] -
[2017-05-15] MEDS ORDERED: Mirtazapine 15 MG TABLET PO SCH ×2 (21:00)
[2017-05-15] MEDS: Melatonin 3 MG TABLET PO PRN (23:40)
[2017-05-16] MEDS: *HR* Enoxaparin 40 MG/0.4 ML SYRINGE SQ SCH (05:10)
[2017-05-16 07:03] LABS: BUN/Creatinine Ratio 22 (6-26); Blood Urea Nitrogen 11 mg/dL (8-23); Calcium 8.9 mg/dL (8.6-10.3); Carbon Dioxide 24 mEq/L (23-29); Chloride 103 mEq/L (98-107); Glucose 96 mg/dL (70-105); Magnesium 1.6 mg/dL (1.6-2.6); Osmolality,Calculated 277 (280-300); Potassium 4.7 mEq/L (3.5-5.1); Sodium 134 mEq/L (136-145); eGFR For African Americans > 60 (> 60); eGFR For Non-African Americans > 60 (> 60)
[2017-05-16] MEDS: Gabapentin 400 MG CAPSULE PO SCH ×2 (10:02→15:27)
[2017-05-16] MEDS: *HR* OxyCODONE/APAP 10/325 TABLET PO PRN (10:02)
[2017-05-16] MEDS: Nicotine 21 MG PATCH.TD24 TD SCH (10:03)
[2017-05-16] MEDS: Insulin DETEMIR 100 UNIT/ML X5UNITS SQ SCH (10:03)
[2017-05-16] MEDS: Insulin LISPRO 300 UNITS/3 ML VIAL SQ SCH ×2 (10:08→12:08)
[2017-05-16 11:00] VITALS: BP 107/69
--- NOTE | 2017-05-16 11:39 | Discharge Summary ---
<Jeff Eric - Last Filed: 05/16/17 12:09> Date of Encounter: 05/16/17 Time of Encounter: 10:00 - Discharge Diagnosis (1) MANISHA (acute kidney injury) Priority: Primary Status: Acute Comments: MANISHA secondary to gastroententeritis, unknown etiology. (2) Suicidal ideation Priority: Primary Status: Acute (3) Type 2 diabetes mellitus Priority: Secondary Status: Chronic Qualifiers: Qualified Code(s): E11.9 - Type 2 diabetes mellitus without complications (4) Anxiety Priority: Secondary Status: Acute (5) COPD (chronic obstructive pulmonary disease) Priority: Secondary Status: Chronic Qualifiers: COPD type: unspecified COPD Qualified Code(s): J44.9 - Chronic obstructive pulmonary disease, unspecified - Discharge Medications Prescriptions: Amitriptyline [Elavil] 10 mg PO HS #7 tablet Amitriptyline [Elavil] 25 mg PO HS #7 tablet Amitriptyline [Elavil] 50 mg PO HS #7 tablet Polyethylene Glycol 3350 [MiraLAX] 17 gm PO DAILY #7 powd.pack Home Medications: Insulin Glargine [Lantus] 30 unit SQ BID 02/17/16 [History] Oxycodone HCl/Acetaminophen [Percocet 10-325 mg Tablet] 1 tab PO QID PRN [History] Promethazine [Phenergan] 25 mg PO Q6HR 02/17/16 [History] Gabapentin [Neurontin] 400 mg PO TID 03/26/17 [History] Amitriptyline [Elavil] 100 mg PO HS 05/12/17 [History] Insulin Regular Human [Humulin R] 0 unit SQ PER PKG DI 05/12/17 [History] Metoclopramide [Reglan] 10 mg PO QIDAC 05/12/17 [History] Amitriptyline [Elavil] 10 mg PO HS #7 tablet 05/16/17 [Rx] Amitriptyline [Elavil] 25 mg PO HS #7 tablet 05/16/17 [Rx] Amitriptyline [Elavil] 50 mg PO HS #7 tablet 05/16/17 [Rx] Polyethylene Glycol 3350 [MiraLAX] 17 gm PO DAILY #7 powd.pack 05/16/17 [Rx] Allergies/Adverse Reactions: 3 Allergy/AdvReac Type Severity Reaction Status Date / Time gentamicin Allergy Unknown See Verified 05/14/17 09:29 Comments Penicillins Allergy Unknown See Verified 05/14/17 09:29 Comments sertraline [From Zoloft] Allergy Unknown See Verified 05/14/17 09:29 Comments tramadol Allergy Unknown See Verified 05/14/17 09:29 Comments trazodone Allergy Unknown See Verified 05/14/17 09:29 Comments atorvastatin [From Lipitor] Allergy tingling Verified 05/14/17 09:29 duloxetine [From Cymbalta] Allergy Numbness Verified 05/14/17 09:29 ketorolac [From Toradol] Allergy tingling Verified 05/14/17 09:29 morphine Allergy see comment Verified 05/14/17 09:29 ondansetron Allergy see comment Verified 05/14/17 09:29 [From Zofran (as hydrochloride)] prochlorperazine Allergy see comment Verified 05/14/17 09:29 Date of admission: 05/12/17 22:43 Primary care physician: PCP NONE Consults: 05/12/17 22:38 Consult to Nutrition [CONS] Routine Comment: Consulting Provider: NUTRITION Reason for Dietary Consult: MST Score Consult to Home Health Aid [CONS] Routine Reason for SW Consult: discharge planning 05/12/17 22:42 Consult to Psychiatry [CONS] Routine Consulting Provider: Psychiatry [place] Reason for Consult: suicide ideation Call Completed: No 05/14/17 08:10 Consult to Occupational Therapy [CONS] Routine Comment: Evaluate, develop and implement POC Reason for Consult: evaluate and treat Consult to Physical Therapy [CONS] Routine Comment: Evaluate, develop and implement POC Reason for Consult: evaluate and treat Discharging clinician: Jeff Eric Anticipated date of discharge: 05/16/17 - Patient Status Disposition: Home, Self-Care Condition: Good Overall status at discharge: patient is back to baseline - Discharge Instructions Follow Up With: NONE,PCP [Primary Care Provider] - (Patient prefers to get her own primary care physician. She will be getting one this Monday. Thank you) - Diet and Activity Diet: advance to your usual diet Interval History: Ms. Martinez is a 66F who presented with n/v/d and MANISHA, electrolyte abnormalities and suicidal ideation. She reported 1-2 weeks of nausea, non-bloody emesis, non- bloody diarrhea, decreased PO intake. Persistent symptoms led her to ED admission at [place]. Her in March 2017 and she reports that she felt like overdosing on insulin. She was admitted for SI and MANISHA. Psychiatry has cleared her. Her symptoms have improved with amytriptyline. She reports constipation and last BM 3 days ago. No further complaints. Hospital course: Ms. Martinez is a 66 year old female Time spent discussing smoking cessation with patient: 3 to 10 minutes - Time Spent with Patient Total time spent providing and/or coordinating discharge services: Less than 30 minutes - Constitutional Vitals: Temp Pulse Resp BP Pulse Ox 98.2 F 100 16 107/69 95 05/16/17 10:59 05/16/17 10:59 05/16/17 10:59 05/16/17 10:59 05/16/17 10:59 General appearance: Present: A&O X 3, no acute distress, answers questions appropriately - Head Head exam: Present: atraumatic - Eye Eye exam: Present: normal appearance - ENT ENT exam: Present: mucous membranes dry - Neck Neck exam general surgery: Present: supple, trachea midline - Respiratory Respiratory exam: Present: CTAB. Absent: rales, respiratory distress, rhonchi, wheezes - Cardiovascular Cardiovascular exam: Present: distant heart sounds, +S1, +S2 Additional comments: A-port present. Clean and no signs of infection. - GI/Abdominal GI/Abdominal exam: Present: normal bowel sounds, no peritoneal signs. Absent: bruit, guarding - Extremities Exam Extremities exam: Present: normal inspection, radial pulses palpable and symmetrical. Absent: pedal edema - Neurological Exam Neurological exam: Present: alert, CN II-XII intact, oriented X3 - Psychiatric Psychiatric exam: Present: anxious. Absent: homicidal ideation, suicidal ideation - Skin Skin exam: Present: dry, intact, warm <Issa Ortiz H - Last Filed: 05/16/17 13:30> Date of Encounter: 05/16/17 Date of admission: 05/12/17 22:43 Primary care physician: PCP NONE Consults: 05/12/17 22:38 Consult to Nutrition [CONS] Routine Comment: Consulting Provider: NUTRITION Reason for Dietary Consult: MST Score Consult to Home Health Aid [CONS] Routine Reason for SW Consult: discharge planning 05/12/17 22:42 Consult to Psychiatry [CONS] Routine Consulting Provider: Psychiatry [place] Reason for Consult: suicide ideation Call Completed: No 05/14/17 08:10 Consult to Occupational Therapy [CONS] Routine Comment: Evaluate, develop and implement POC Reason for Consult: evaluate and treat Consult to Physical Therapy [CONS] Routine Comment: Evaluate, develop and implement POC Reason for Consult: evaluate and treat Hospital course: Ms. Martinez is a 66 year old female - Time Spent with Patient Total time spent providing and/or coordinating discharge services: - Constitutional Vitals: Temp Pulse Resp BP Pulse Ox 98.2 F 100 16 107/69 95 05/16/17 10:59 05/16/17 10:59 05/16/17 10:59 05/16/17 10:59 05/16/17 10:59 - Attending Attestation Acute renal failure secondary to dehydration due to acute gastroenteritis possibly viral Creatinine increased up to 1.2 and now is back to her baseline of 0.51 She was cleared by psychiatry Continue amitriptyline taper in order to be stopped completely after taper Hypomagnesemia, magnesium was repleted Hypokalemia, was repleted as well Additional past medical history of CAD, CVA, diabetes type 2 insulin-dependent, GERD, hyperlipidemia, hypertension, Time spent on this discharge 40 minutes I examined this patient and my medical decision-making was reviewed with the Resident Physician. I agree with the documented findings, disposition and treatment plan as described except to the extent set forth below.
--- NOTE | 2017-05-16 13:12 | Physician Discharge Referral ---
<Jeff Eric - Last Filed: 05/16/17 13:09> Home Health/Hosp Referral Info Transfer to: Home Health Attending Provider: Issa Ortiz - Diagnosis (1) MANISHA (acute kidney injury) Priority: Primary Status: Acute (2) Suicidal ideation Priority: Primary Status: Acute (3) Type 2 diabetes mellitus Priority: Secondary Status: Chronic (4) Anxiety Priority: Secondary Status: Acute (5) COPD (chronic obstructive pulmonary disease) Priority: Secondary Status: Chronic - Respiratory Orders None Smoking Cessation: Smoking cessation has been advised. For more information, call the [place] Tobacco Quit Line at 8-102-WCKY-NOW. - Diet/Nutrition Diet/Nutrition Orders: Regular - Services Needed Following services are medically necessary services: Home Health Aide - Transfer Medications Prescriptions: Amitriptyline [Elavil] 10 mg PO HS #7 tablet Amitriptyline [Elavil] 25 mg PO HS #7 tablet Amitriptyline [Elavil] 50 mg PO HS #7 tablet Mirtazapine [Remeron] 15 mg PO DAILY #30 tablet Polyethylene Glycol 3350 [MiraLAX] 17 gm PO DAILY #7 powd.pack Home Medications: Insulin Glargine [Lantus] 30 unit SQ BID 02/17/16 [History] Oxycodone HCl/Acetaminophen [Percocet 10-325 mg Tablet] 1 tab PO QID PRN [History] Promethazine [Phenergan] 25 mg PO Q6HR 02/17/16 [History] Gabapentin [Neurontin] 400 mg PO TID 03/26/17 [History] Amitriptyline [Elavil] 100 mg PO HS 05/12/17 [History] Insulin Regular Human [Humulin R] 0 unit SQ PER PKG DI 05/12/17 [History] Metoclopramide [Reglan] 10 mg PO QIDAC 05/12/17 [History] Amitriptyline [Elavil] 10 mg PO HS #7 tablet 05/16/17 [Rx] Amitriptyline [Elavil] 25 mg PO HS #7 tablet 05/16/17 [Rx] Amitriptyline [Elavil] 50 mg PO HS #7 tablet 05/16/17 [Rx] Mirtazapine [Remeron] 15 mg PO DAILY #30 tablet 05/16/17 [Rx] Polyethylene Glycol 3350 [MiraLAX] 17 gm PO DAILY #7 powd.pack 05/16/17 [Rx] Allergies/Adverse Reactions: 3 Allergy/AdvReac Type Severity Reaction Status Date / Time gentamicin Allergy Unknown See Verified 05/14/17 09:29 Comments Penicillins Allergy Unknown See Verified 05/14/17 09:29 Comments sertraline [From Zoloft] Allergy Unknown See Verified 05/14/17 09:29 Comments tramadol Allergy Unknown See Verified 05/14/17 09:29 Comments trazodone Allergy Unknown See Verified 05/14/17 09:29 Comments atorvastatin [From Lipitor] Allergy tingling Verified 05/14/17 09:29 duloxetine [From Cymbalta] Allergy Numbness Verified 05/14/17 09:29 ketorolac [From Toradol] Allergy tingling Verified 05/14/17 09:29 morphine Allergy see comment Verified 05/14/17 09:29 ondansetron Allergy see comment Verified 05/14/17 09:29 [From Zofran (as hydrochloride)] prochlorperazine Allergy see comment Verified 05/14/17 09:29 Certification: Further, I certify that my clinical findings support that this patient is homebound (i.e. absences from home require considerable and taxing effort and are for medical reasons or congregation services or infrequently or short duration when for other reasons) because: Homebound Reason: Patient requires assistance of a person or device to safely leave home, Leaving home requires considerable and taxing effort due to condition Attestation: My signature below is to certify that this patient is under my care and that I, or nurse practitioner, or a physician's special education educational assistant working with me, has a face-to -face encounter with this patient. <Issa Ortiz - Last Filed: 05/16/17 16:57> - Respiratory Orders Smoking Cessation: Smoking cessation has been advised. For more information, call the [place] Tobacco Quit Line at 6-538-DTWL-NOW. Certification: Further, I certify that my clinical findings support that this patient is homebound (i.e. absences from home require considerable and taxing effort and are for medical reasons or congregation services or infrequently or short duration when for other reasons) because: Attestation: My signature below is to certify that this patient is under my care and that I, or nurse practitioner, or a physician's special education educational assistant working with me, has a face-to -face encounter with this patient. Mirtazapine 15 mg daily was prescribed as recommended by psychiatry
== END 2017-05-16 18:24 | disposition home or self-care (01) | DRG 683 ==
LOC: 3ANU
PROVIDERS: ADMIT Internal Medicine; ATTEND Internal Medicine

== ENCOUNTER 2019-01-04 13:00 | Inpatient (IN) ==
[2019-01-04] MEDS ORDERED: Acetaminophen 325 MG TABLET PO PRN (16:53)
[2019-01-04] MEDS ORDERED: Naloxone 0.4 MG/ML INJ IVP PRN (16:53)
[2019-01-04] MEDS ORDERED: Isovue-370 500 ML BOTTLE IVP ONE (16:57)
--- NOTE | 2019-01-04 17:04 | Internal Med History&Physical ---
<Kamilah Urbina - Last Filed: 01/04/19 17:08> Date of Encounter: 01/04/19 Internal Medicine - H&P: HPI History of present illness: Ms. Martinez is a 68 year old female Internal Medicine - H&P: Meds Amitriptyline HCl 100 mg PO HS 01/04/19 [History] HYDROcodone/Acet 5/325 mg [[place] 5-325 mg] 1 tab PO Q6H PRN 01/04/19 [History] Oxymorphone HCl [Opana] 10 mg PO Q4H PRN 01/04/19 [History] Promethazine [Phenergan] 12.5 mg PO Q6HR 01/04/19 [History] raNITIdine HCl [Zantac] 150 mg PO BID 01/04/19 [History] Allergy/AdvReac Type Severity Reaction Status Date / Time gentamicin Allergy Unknown See Verified 01/04/19 07:07 Comments Penicillins Allergy Unknown See Verified 01/04/19 07:07 Comments sertraline [From Zoloft] Allergy Unknown See Verified 01/04/19 07:07 Comments tramadol Allergy Unknown See Verified 01/04/19 07:07 Comments trazodone Allergy Unknown See Verified 01/04/19 07:07 Comments atorvastatin [From Lipitor] Allergy tingling Verified 01/04/19 07:07 duloxetine [From Cymbalta] Allergy Numbness Verified 01/04/19 07:07 ketorolac [From Toradol] Allergy tingling Verified 01/04/19 07:07 morphine Allergy see comment Verified 01/04/19 07:07 ondansetron Allergy see comment Verified 01/04/19 07:07 [From Zofran (as hydrochloride)] prochlorperazine Allergy see comment Verified 01/04/19 07:07 Paper Tape AdvReac See Uncoded 01/04/19 07:07 Comments All Systems PM: A 10-system review of systems was performed and is negative for pertinent findings except as documented above in the HPI. - Constitutional Vitals: Temp Pulse Resp BP Pulse Ox 97.6 F 98 15 151/69 95 01/04/19 16:41 01/04/19 16:41 01/04/19 16:41 01/04/19 16:41 01/04/19 16:41 - Time Spent With Patient Total time spent is greater than 50% in coordination of care (as documented) at patient's floor/unit and/or counseling patient: - Attending Attestation I examined this patient and my medical decision-making was reviewed with the Resident Physician Dr Parker. I agree with the documented findings, disposition and treatment plan as described except to the extent set forth below. Ms Martinez is being observed for intractable n/v/d over the last month awake, pleasant, comfortable appearing. She has diffuse cramping abd pain, no current nausea. no blood in diarrhea, occasionally dark, liquid stool is her baseline. Abd pain is mostly LUQ and is unchanged by food. gen- alert, awake,appears stated age cv- reg rate and rhythm, normal s1,s2, warm ext lungs- ctabl, no wheezing, rhonchi or crackles abd- soft, diffusely tender without rigidity or guarding, non distended, + bs neuro- AAOx3 Intractable N/V for one month Chronic Diarrhea Her clinical picture at this time does not appear c/w ischemic bowel given her comfort level or normal lactate, knowing her JOSELUIS stenosis history we will order stat CT a/p to eval for ischemic bowel changes or bowel obstruction as no imaging was obtained at [facility] 12/11/18 CT scan reviewed I have d/w Dr Casanova and he will see her in consultation, , he too does not feel this is vascular in nature or requires urgent surgical eval/intervention she may benefit from scopes this admission given esophageal thickening/esophagitis on imaging one month ago and chronic diarrhea with no real improvement in sxs over one month -stat ct a/p, npo for bowel rest, gen surg consult DM- SSI and check a1c hx drug seeking behavior further dx and plan as noted by resident <Prabhu Parker - Last Filed: 01/04/19 18:43> Date of Encounter: 01/04/19 Time of Encounter: 17:04 Internal Medicine - H&P: HPI Chief complaint: N/V/D Admitted From: Hospital to Hospital Transfer Plans for Post Hospital Care: Home History of present illness: Ms. Martinez is a 68 year old female with a past medical history of COPD, CVA, diabetes, GERD, fibromyalgia. Home meds consist of Phenergan, amitriptyline, insulin, metformin, [place], morphine. Surgical history consists of laparoscopic cholecystectomy, hysterectomy, laparoscopic appendectomy, multiple bladder surgeries. She was recently admitted at the end of November 2018 for nausea/vomiting/diarrhea. At that time she was evaluated with CTA of the abdomen with intravenous contrast which demonstrated an edematous distal esophag us, stenotic inferior mesenteric artery, and opacified branches of the inferior mesenteric artery. During that admission she was treated with supportive care, her symptoms resolved, and she was discharged. This admission were all around the chief complaint of nausea/vomiting/diarrhea that has been occurring for one week, constantly, involving approximately 5 episodes of diarrhea and vomiting each day, the diarrhea and vomitus are watery, there is no blood in the diarrhea or vomitus, she has taken her home Phenergan without relief. She denies any chest pain, shortness of breath, fever, chills, constipation. She does report chronic muscular skeletal pain associated with her fibromyalgia. She denies drug or alcohol use, but admits to continued tobacco use. She denies any travel, strange foods, sick contacts, changes in medication. She was evaluated at the [facility] emergency department with CBC and BMP which were negative for significant abnormality. She was transferred to our facility for further evaluation. She states she has never before seen a communications administrator, despite the fact that she has had episodes of nausea/vomiting/diarrhea occurring her entire life. She also states she has never had EGD performed but has had colonoscopy performed. She is aware of the findings of her last CT of the abdomen and pelvis and states no follow-up was scheduled for her. Past Med Surg Social Fam HX - Past Medical History Medical history: arthritis, COPD, coronary artery disease, CVA, diabetes, fibromyalgia, GERD, myocardial infarction, other Additional medical history: DVT Right Leg Psychiatric history: anxiety, depression - Past Surgical History Surgical History: appendectomy, cholecystectomy, hysterectomy, other Additional surgical history: "bladder surgery x5" - Social History Smoking Status: Current every day smoker Smokeless Tobacco Status: No Alcohol use: none Drug use: none - Family History Mother Living Status: Hx Family Cardiac Disorders: Yes (CHF, HTN, [place]) Hx Family Respiratory Disorders: No Hx Family Cancer: No Hx Family GI Disorders: No Hx Family Endocrine Disorder: Yes (DM) Hx Family Neuromuscular Disorders: No Hx Family Neurologic Disorders: No Hx Family HEENT Disorders: No Hx Family Autoimmune Disorders: No Father Adopted: No Family Member Ethnicity: Unknown Living Status: Hx Family Cardiac Disorders: Yes ([place]) Hx Family Respiratory Disorders: Yes Hx Family Cancer: Yes (stomach cancer) Hx Family GI Disorders: No Hx Family Genitourinary Disorders: No Hx Family Endocrine Disorder: No Hx Family Musculoskeletal Disorders: No Hx Family Neuromuscular Disorders: No Hx Family Neurologic Disorders: Yes (migraines) Hx Family HEENT Disorders: No Hx Family Autoimmune Disorders: No Hx Family Reproductive Disorders: No Hx Family Psychosocial Disorders: No Hx Family Medical Disorders: No All Systems PM: A 10-system review of systems was performed and is negative for pertinent findings except as documented above in the HPI. Review of systems: 10 point review of systems negative except as otherwise mentioned in history of present illness. - Constitutional Vitals: Temp Pulse Resp BP Pulse Ox 97.6 F 98 15 151/69 95 01/04/19 16:41 01/04/19 16:41 01/04/19 16:41 01/04/19 16:41 01/04/19 16:41 Exam: Patient is lying in the bed in the lateral decubitus position, in no acute distress She is alert and oriented 3, she moves all 4 extremities spontaneously and there are no focal deficits noted in the face or extremities Heart is in regular rate and rhythm without murmur or gallop auscultated Chest is convex, breath sounds are diminished diffusely but no wheeze/rales/rhonchi are auscultated There is a midline suprapubic scar present as well as small scars located in the right upper and lower quadrants of the abdomen Normal bowel sounds are noted, there is minimal tenderness to the epigastric and left upper quadrants of the abdomen Skin is warm and dry without any erythema/bleeding/bruising noted - Assessment and Plan (1) Epigastric abdominal pain Current Visit: Yes Status: Acute Assessment and plan: Patient presented with epigastric and left upper quadrant abdominal pain, nausea, vomiting, diarrhea present for one week Based on patient history and record review this is a frequent issue that has not yielded concrete diagnosis Previous imaging has demonstrated distal esophageal thickening consistent with esophagitis as well as stenosis of the inferior mesenteric artery as well as opacification of the branches of the inferior mesenteric artery, neither of these appear to been further evaluated Her labs and vitals on admission are within normal limits, not concerning for emergent differential such as mesenteric ischemia Regardless given her history we have ordered a CT angiogram of the abdomen to evaluate several differentials Her history and physical correlate most strongly with esophagitis and/or gastritis We have initiated supportive care with IV PPI, Phenergan, fluids, nothing by mouth status We have also requested evaluation by the acute care surgery team, and we anticipate possible esophagogastroduodenoscopy at the discretion of the surgeon Otherwise we will continue supportive care, monitor for imaging results, and monitor clinical disposition (2) Nausea and vomiting Current Visit: Yes Status: Acute Qualifiers: Vomiting type: cyclical vomiting Vomiting Intractability: non-intractable Qualified Code(s): G43.A0 - Cyclical vomiting, not intractable (3) Diarrhea Current Visit: Yes Status: Acute Assessment and plan: Diarrhea is watery, without blood, and appears to be related to upper gastrointestinal symptoms Qualifiers: Diarrhea type: unspecified type Qualified Code(s): R19.7 - Diarrhea, unspecified (4) Fibromyalgia Current Visit: No Status: Chronic Assessment and plan: Patient has history of chronic fibromyalgia, we have continued her home pain medications (5) History of CVA (cerebrovascular accident) Current Visit: No Status: Chronic Assessment and plan: History of CVA, I questioned why patient was not currently on any aspirin/statin She stated she was taken off aspirin because of gastritis, she did not know about statin We will hold these medications for now and defer to her PCP at follow-up (6) COPD (chronic obstructive pulmonary disease) Current Visit: No Status: Chronic Assessment and plan: History of COPD, not currently on any home meds, saturates well on room air, no signs of exacerbation Qualifiers: COPD type: unspecified COPD Qualified Code(s): J44.9 - Chronic obstructive pulmonary disease, unspecified (7) Diabetes mellitus Current Visit: No Status: Chronic Assessment and plan: Chronic diabetic on metformin at home, we will treat with sliding scale insulin here Qualifiers: Diabetes mellitus type: type 2 Diabetes mellitus assisted insulin use: with meterman use Diabetes mellitus complication status: with other specified complication Qualified Code(s): E11.69 - Type 2 diabetes mellitus with other specified complication; 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
[2019-01-04] MEDS ORDERED: *HR* Dextrose 50 % in Water (Syg) 50 ML SYRINGE IVP PRN (18:24)
[2019-01-04] MEDS ORDERED: Dextrose Gel 15 GM/37.5 ML TUBE PO PRN ×2 (18:24)
[2019-01-04] MEDS ORDERED: D5% in Water 1,000 ML IVC PRN (18:24)
[2019-01-04] MEDS: 0.9 % Sodium Chloride 1,000 ML IVC SCH (18:45)
[2019-01-04] MEDS: Pantoprazole 40 MG VIAL IVP SCH (18:45)
[2019-01-04] MEDS: *HR* HYDROcodone/Acet 5/325 mg TABLET PO PRN (18:55)
[2019-01-04] MEDS: Melatonin 3 MG TABLET PO PRN (21:57)
[2019-01-04] MEDS: *HR* OxyCODONE Immed Rel 15 MG TABLET PO PRN (21:59)
[2019-01-05] MEDS: Insulin LISPRO 300 UNITS/3 ML VIAL SQ SCH ×6 (00:13→22:00)
[2019-01-05 01:22] LABS: Hematocrit 30.2 % (35.3-44.9); Hemoglobin 10.2 g/dL (11.5-15.4); Mean Corpuscular HGB Conc 33.8 g/dL (31.6-35.5); Mean Corpuscular Hemoglobin 32.7 pg (28.0-33.3); Mean Corpuscular Volume 96.8 fL (83.0-100.0); Platelet Count 210 K/mcL (140-400); Red Blood Count 3.12 M/mcL (3.82-4.97); White Blood Count 9.4 K/mcL (4.3-11.1)
[2019-01-05 01:42] LABS: BUN/Creatinine Ratio 33 (6-26); Blood Urea Nitrogen 21 mg/dL (8-23); Calcium 8.4 mg/dL (8.6-10.3); Carbon Dioxide 20 mEq/L (23-29); Chloride 108 mEq/L (98-107); Glucose 109 mg/dL (70-105); Osmolality,Calculated 288 (280-300); Potassium 3.4 mEq/L (3.5-5.1); Sodium 137 mEq/L (136-145); eGFR For African Americans > 60 (> 60); eGFR For Non-African Americans > 60 (> 60)
[2019-01-05] MEDS: Pantoprazole 40 MG VIAL IVP SCH (06:19)
--- NOTE | 2019-01-05 07:59 | Internal Med Progress Note ---
Hospitalist Progress Note - Encounter Date of Encounter: 01/05/19 Time of Encounter: 09:20 - Subjective Interval History: awake in chair, abd pain is improved this morning, no n/v, no diarrhea. awaiting egd. - Exam Vitals: Temp Pulse Resp BP Pulse Ox 98.0 F 86 16 119/66 97 01/05/19 06:38 01/05/19 06:38 01/05/19 06:38 01/05/19 06:38 01/05/19 06:38 Exam: gen- alert, awake,appears stated age cv- reg rate and rhythm, normal s1,s2, no le edema lungs- ctabl, normal resp effort on room air abd- soft, non tender, non distended, + bs neuro- AAOx3 - Assessment and Plan (1) Nausea and vomiting Current Visit: Yes Status: Chronic (2) Intermittent left upper quadrant abdominal pain Current Visit: Yes Status: Chronic - Summary of Assessment and Plan Summary of Assessment and Plan: Intractable N/V for one month Chronic Diarrhea and Abdominal pain Ruled out ischemic bowel w CTA EGD 01/05 with bxs taken for GE junction granular tissue, antrum mucosa changes and duodenal bulb erythema -PPI PO, Carafate, fu with Dr Casanova outpt for bx results and for outpt csope (not going to be preformed this admit due to n/v and need to have improved sxs to do prep) -will begin to trial liquid diet and monitor Chronic Conditions: DM- SSI and prn hypoglycemics, hold home oral agent, will need to hold post dye imaging until 01/07 hx drug seeking behavior + has Fibromyalgia - cont home opiates and do not advance further CVA hx- asa/statin have been held by PCP, will not resume here, defer to PCP COPD, stable vte ppx scds She is a BMAT 1, dispo will be to home once able to tolerate oral intake Internal Medicine: Result - Labs CBC & Chem 7: 01/05/19 00:56 01/05/19 00:56 Labs: Short CBC 01/05/19 Range/Units 00:56 WBC 9.4 (4.3-11.1) K/mcL Hgb 10.2 L (11.5-15.4) g/dL Hct 30.2 L (35.3-44.9) % Plt Count 210 (140-400) K/mcL BMP 01/05/19 00:56 Sodium 137 Potassium 3.4 L Chloride 108 H Carbon Dioxide 20 L BUN 21 Creatinine 0.63 Glucose 109 H Calcium 8.4 L - Impressions Impressions Abdomen/Pelvis CTA 01/04/19 19:14 IMPRESSION: Mesenteric arteries are widely patent. No signs of mesenteric ischemia are identified. Bilateral iliac disease, including occlusion of the right external iliac artery and multiple left external iliac artery stenoses. Hiatal hernia with thickening of the distal esophageal wall, most likely esophagitis. When feasible follow-up endoscopy may be considered. Mild fatty infiltration of the liver. D/ / Parth Mina MD / Parth Mina MD Interpreting Provider: Parth Mina MD Consult Discharge Plan - Plan Referrals: Giulia Moody MD [Primary Care Provider] - (1) Nausea and vomiting Qualifiers: Vomiting type: cyclical vomiting Vomiting Intractability: non-intractable Qualified Code(s): G43.A0 - Cyclical vomiting, not intractable
[2019-01-05] MEDS: *HR* OxyCODONE Immed Rel 15 MG TABLET PO PRN ×2 (08:07→16:38)
--- NOTE | 2019-01-05 09:30 | AcuteCare Surgery Consult Note ---
Date of Encounter: 01/05/19 Time of Encounter: 09:29 Assessment and Plan (1) Intermittent left upper quadrant abdominal pain Current Visit: Yes Status: Resolved The patient states that her pain is somewhat better now that she has been given medication for heartburn and reflux which she does admit to having intermittently. She has never been prescribed medication for heartburn and reflux. Given her symptoms I think it would be appropriate to proceed with an EGD with MAC. I do think at some point she will require a colonoscopy however since she has the constellation of nausea vomiting with her diarrhea and left upper quadrant abdominal pain I would hold on doing a colonoscopy at this time until her upper abdominal symptoms resolved. Discussed with the patient and she agrees with the above plan. (2) Nausea and vomiting Current Visit: Yes Status: Resolved see above Qualifiers: Vomiting type: unspecified Vomiting Intractability: non-intractable Qualified Code(s): R11.2 - Nausea with vomiting, unspecified History of Present Illness Consult date: 01/05/19 Requesting physician: Prabhu Parker History of present illness: The patient is a 68 year old female with a past medical history significant for CVA, diabetes mellitus, arthritis, and mood disorder who says that she has been having a 4 month history of abdominal pain, nausea and vomiting, and diarrhea. She states that the pain is located in the left upper quadrant and is intermittent in nature. He states that essentially she eats food she has sharp to stabbing type pain. She denies any hematemesis and states that she also has been having diarrhea for the same length of time. She had 10 bowel movements yesterday and denies any history of rectal bleeding. She denies any family history colon cancer and she has never had a colonoscopy. Past Med Surg Social Fam HX - Past Medical History Medical history: arthritis, COPD, coronary artery disease, CVA, diabetes, fibromyalgia, GERD, myocardial infarction, other Additional medical history: DVT Right Leg Psychiatric history: anxiety, depression - Past Surgical History Surgical History: appendectomy, cholecystectomy, hysterectomy, other Additional surgical history: "bladder surgery x5" - Social History Smoking Status: Current every day smoker Smokeless Tobacco Status: No Alcohol use: none Drug use: none - Family History Mother Living Status: Hx Family Cardiac Disorders: Yes (CHF, HTN, [place]) Hx Family Respiratory Disorders: No Hx Family Cancer: No Hx Family GI Disorders: No Hx Family Endocrine Disorder: Yes (DM) Hx Family Neuromuscular Disorders: No Hx Family Neurologic Disorders: No Hx Family HEENT Disorders: No Hx Family Autoimmune Disorders: No Father Adopted: No Family Member Ethnicity: Unknown Living Status: Hx Family Cardiac Disorders: Yes ([place]) Hx Family Respiratory Disorders: Yes Hx Family Cancer: Yes (stomach cancer) Hx Family GI Disorders: No Hx Family Genitourinary Disorders: No Hx Family Endocrine Disorder: No Hx Family Musculoskeletal Disorders: No Hx Family Neuromuscular Disorders: No Hx Family Neurologic Disorders: Yes (migraines) Hx Family HEENT Disorders: No Hx Family Autoimmune Disorders: No Hx Family Reproductive Disorders: No Hx Family Psychosocial Disorders: No Hx Family Medical Disorders: No Medications and Allergies Amitriptyline HCl 100 mg PO HS PRN 01/04/19 [History] HYDROcodone/Acet 5/325 mg [[place] 5-325 mg] 1 tab PO Q6H PRN 01/04/19 [History] Oxymorphone HCl [Opana] 10 mg PO Q4H PRN 01/04/19 [History] Promethazine [Phenergan] 12.5 mg PO Q6HR 01/04/19 [History] raNITIdine HCl [Zantac] 150 mg PO BID 01/04/19 [History] Allergy/AdvReac Type Severity Reaction Status Date / Time gentamicin Allergy Unknown See Verified 01/05/19 12:11 Comments Penicillins Allergy Unknown See Verified 01/05/19 12:11 Comments sertraline [From Zoloft] Allergy Unknown See Verified 01/05/19 12:11 Comments tramadol Allergy Unknown See Verified 01/05/19 12:11 Comments trazodone Allergy Unknown See Verified 01/05/19 12:11 Comments atorvastatin [From Lipitor] AdvReac tingling Verified 01/05/19 12:11 duloxetine [From Cymbalta] AdvReac Numbness Verified 01/05/19 12:11 ketorolac [From Toradol] AdvReac tingling Verified 01/05/19 12:11 morphine AdvReac see comment Verified 01/05/19 12:11 ondansetron AdvReac see comment Verified 01/05/19 12:11 [From Zofran (as hydrochloride)] prochlorperazine AdvReac see comment Verified 01/05/19 12:11 Paper Tape AdvReac See Uncoded 01/05/19 12:11 Comments Review of Systems All systems PM: reviewed and no additional remarkable complaints except as stated All systems PM: The remainder of the systems were reviewed and are negative General Surgery Exam Initial Vital Signs Temp Pulse Resp BP Pulse Ox 97.6 F 98 15 151/69 95 01/04/19 16:41 01/04/19 16:41 01/04/19 16:41 01/04/19 16:41 01/04/19 16:41 - Eyes PERRL, normal ocular movement - Respiratory normal expansion, normal respiratory effort, clear to auscultation - Cardiovascular Cardiovascular exam: Present: RRR, no murmurs/rubs/gallops - Abdomen Abdomen general surgery: Present: bowel sounds present, soft, tender (left upper abdominal pain to palpation) - Musculoskeletal Present: other (no clubbing or edema) Exam Initial Vital Signs Temp Pulse Resp BP Pulse Ox 97.6 F 98 15 151/69 95 01/04/19 16:41 01/04/19 16:41 01/04/19 16:41 01/04/19 16:41 01/04/19 16:41 Results - Labs 01/06/19 05:11 01/06/19 05:11 Abnormal lab results RBC 3.12 M/mcL (3.82-4.97) L 01/05/19 00:56 Hgb 10.2 g/dL (11.5-15.4) L 01/05/19 00:56 Hct 30.2 % (35.3-44.9) L 01/05/19 00:56 Potassium 3.4 mEq/L (3.5-5.1) L 01/05/19 00:56 Chloride 108 mEq/L (98-107) H 01/05/19 00:56 Carbon Dioxide 20 mEq/L (23-29) L 01/05/19 00:56 BUN/Creatinine Ratio 33 (6-26) H 01/05/19 00:56 Glucose 109 mg/dL (70-105) H 01/05/19 00:56 POC Glucose 119 mg/dL (70-99) H 01/04/19 23:14 Calcium 8.4 mg/dL (8.6-10.3) L 01/05/19 00:56 Diabetes panel 01/05/19 Range/Units 00:56 Sodium 137 (136-145) mEq/L Potassium 3.4 L (3.5-5.1) mEq/L Chloride 108 H (98-107) mEq/L Carbon Dioxide 20 L (23-29) mEq/L BUN 21 (8-23) mg/dL Creatinine 0.63 (0.60-1.20) mg/dL Glucose 109 H (70-105) mg/dL Calcium 8.4 L (8.6-10.3) mg/dL Calcium panel 01/05/19 Range/Units 00:56 Calcium 8.4 L (8.6-10.3) mg/dL Pituitary panel 01/05/19 Range/Units 00:56 Sodium 137 (136-145) mEq/L Potassium 3.4 L (3.5-5.1) mEq/L Chloride 108 H (98-107) mEq/L Carbon Dioxide 20 L (23-29) mEq/L BUN 21 (8-23) mg/dL Creatinine 0.63 (0.60-1.20) mg/dL Glucose 109 H (70-105) mg/dL Calcium 8.4 L (8.6-10.3) mg/dL Adrenal panel 01/05/19 Range/Units 00:56 Sodium 137 (136-145) mEq/L Potassium 3.4 L (3.5-5.1) mEq/L Chloride 108 H (98-107) mEq/L Carbon Dioxide 20 L (23-29) mEq/L BUN 21 (8-23) mg/dL Creatinine 0.63 (0.60-1.20) mg/dL Glucose 109 H (70-105) mg/dL Calcium 8.4 L (8.6-10.3) mg/dL All other labs normal. - Imaging CT scan - abdomen: report reviewed, image reviewed (CT scan images and report reviewed by me. This questionable thickening of the esophagus with evidence of a hiatal hernia. There is no free air or free fluid. No evidence of stenotic disease of the mesenteric vessels.) Consult Discharge Plan - Plan Referrals: Stanton Casanova MD [Partnered Physician] - Gene Cevallos MD [Partnered Physician] - Giulia Moody MD [Primary Care Provider] -
--- NOTE | 2019-01-05 09:36 | Anesthesia Evaluation PreOp ---
Date of Encounter: 01/05/19 Time of Encounter: 09:34 - Past History Planned Operation: EGD Cardiac History: NV, Other (CAD) Pulmonary History: Smoker, COPD SNAILER History: CVA (No residual), Other (Anxiety) Other Medical History: Diabetes Type II, GERD, Other (Fibromyalgia) Anesthesia History: No Prior Anesthetic Complications, Past Anesthesia ( appendectomy, cholecystectomy, hysterectomy, bladder surgery x5) : No Alcohol Use: none Drug use: none Medications and Allergies Amitriptyline HCl 100 mg PO HS 01/04/19 [History] HYDROcodone/Acet 5/325 mg [[place] 5-325 mg] 1 tab PO Q6H PRN 01/04/19 [History] Oxymorphone HCl [Opana] 10 mg PO Q4H PRN 01/04/19 [History] Promethazine [Phenergan] 12.5 mg PO Q6HR 01/04/19 [History] raNITIdine HCl [Zantac] 150 mg PO BID 01/04/19 [History] Allergy/AdvReac Type Severity Reaction Status Date / Time gentamicin Allergy Unknown See Verified 01/04/19 07:07 Comments Penicillins Allergy Unknown See Verified 01/04/19 07:07 Comments sertraline [From Zoloft] Allergy Unknown See Verified 01/04/19 07:07 Comments tramadol Allergy Unknown See Verified 01/04/19 07:07 Comments trazodone Allergy Unknown See Verified 01/04/19 07:07 Comments atorvastatin [From Lipitor] Allergy tingling Verified 01/04/19 07:07 duloxetine [From Cymbalta] Allergy Numbness Verified 01/04/19 07:07 ketorolac [From Toradol] Allergy tingling Verified 01/04/19 07:07 morphine Allergy see comment Verified 01/04/19 07:07 ondansetron Allergy see comment Verified 01/04/19 07:07 [From Zofran (as hydrochloride)] prochlorperazine Allergy see comment Verified 01/04/19 07:07 Paper Tape AdvReac See Uncoded 01/04/19 07:07 Comments - Meds/Allergy Pre-op Review Medications Reviewed: Yes Allergies Reviewed: Yes Beta Blockers on Current Med List: No Anesthesia Results - Labs 01/05/19 00:56 01/05/19 00:56 - Imaging EKG: report reviewed (ST) Anesthesia Exam Vital Signs/O2 Sat, Most Current Temp Pulse Resp BP Pulse Ox 98.0 F 86 16 119/66 97 01/05/19 06:38 01/05/19 06:38 01/05/19 06:38 01/05/19 06:38 01/05/19 06:38 NPO (# of Hours): > 8 hrs - HEENT Pupil (Motor): Pupils equal, EOMI Mallampati: I Teeth: Poor dentition Oral Opening: Greater than 3 - SNAILER LOC: Oriented SNAILER Motor: Normal RUE, Normal LUE, Normal RLE, Normal LLE, Normal Face SNAILER Sensory: Normal: RUE, LUE, RLE, LLE, Face - Cardiac Rhythm: Regular Murmur: None JVD: No Carotid Bruit: No - Pulmonary Breath Sounds: bilateral Clear Respiratory Effort: Symmetrical Anesthesia Assess/Plan ASA Score: 3 Level of consciousness: Cooperative Anesthetic Plan: MAC Autologous Blood: Yes Monitoring Plan: Standard Monitors Recovery Plan: Other
[2019-01-05] MEDS ORDERED: *HR* Propofol 200 MG/20 ML VIAL IVP ONE (10:47)
[2019-01-05] MEDS ORDERED: Lidocaine -MPF 2% 2 ML VIAL ONE (10:51)
[2019-01-05] MEDS ORDERED: Ondansetron 4 MG/2 ML VIAL ONE (11:05)
--- NOTE | 2019-01-05 11:20 | Acute Care Surgery Event Note ---
Date of Encounter: 01/05/19 Time of Encounter: 11:19 EGD completed. Finding show some granularity of the GE junction. Biopsies obtained. The stomach showed some texture change or flattening of the mucosa at the antrum. Biopsies were obtained as well. The duodenal bulb showed some mild appearing erythema but no ulcers or bleeding. Biopsies obtained. Await results of the biopsies. Can advance diet. Because of the patient's nausea and vomiting symptoms and probable difficulty trying to tolerate the bowel prep we will schedule for colonoscopy as an outpatient. Would recommend continue with PPI and even consider Carafate for her symptoms. We will follow from a distance.
[2019-01-05] MEDS: Nicotine 21 MG PATCH.TD24 TD SCH (11:47)
--- NOTE | 2019-01-05 15:13 | Anesthesia Evaluation Post Op ---
Date of Encounter: 01/05/19 Time of Encounter: 15:13 - Vital Signs Vital Signs: Vital Signs/O2 Sat, Most Current Temp Pulse Resp BP Pulse Ox 98.0 F 90 16 125/67 97 01/05/19 14:13 01/05/19 14:13 01/05/19 14:13 01/05/19 14:13 01/05/19 14:13 - Lungs Lungs: Clear Ascult./Percussion - Airway Airway: Non-obstructed - Cardiovascular Regular Rate - Mental Status Mental Status: Alert & Oriented, Answers Appropriately - Pain Pain Scale: 0 Pain Scale used: Numeric (1 - 10) - Nausea Vomiting Nausea Vomiting: Not Present - Hydration Hydration: NPO, Has not voided - Discharge PostOp Status: Transfer Patient to floor
--- NOTE | 2019-01-05 15:32 | Electrocardiograph Report ---
[address] [address] Test Date: 2019-01-05 Pat Name: Bell Martinez Department: 115 Room: 3A Gender: F Medical Lab Technologist: : 1950 Requested By: Prabhu Parker Order Number: [id number] Reading MD: Abril Licea Measurements Intervals [place] Rate: 90 P: 74 KS: 160 QRS: 46 QRSD: 88 T: 48 QT: 354 QTc: 402 Interpretive Statements SINUS RHYTHM Electronically Signed On 01-05-2019 15:31:03 EDT by Abril Licea
[2019-01-05 16:04] LABS: Bilirubin,Urine Negative (Negative); Blood,Urine Negative (Negative); Clarity,Urine Clear (Clear); Color,Urine Yellow (Yellow); Glucose,Urine (UA) Normal (Normal); Ketones,Urine 15 mg/dL (Negative); Leukocyte Esterase,Urine Negative (Negative); Nitrite,Urine Negative (Negative); Protein,Urine Trace mg/dL (Neg-Trace); Specific Gravity,Urine > 1.030 (1.010-1.025); Urobilinogen,Urine Normal (Normal)
[2019-01-05] MEDS: Sucralfate 1 GM TABLET PO SCH (16:32)
[2019-01-05] MEDS: 0.9 % Sodium Chloride 1,000 ML IVC SCH (16:32)
[2019-01-05 16:36] LABS: Amphetamine Screen,Urine Negative ng/mL (Cutoff=1000); Barbiturate Screen,Urine Negative ng/mL (Cutoff=200); Benzodiazepines Screen,Urine Negative ng/mL (Cutoff=200); Cannabinoid Screen,Urine Negative ng/mL (Cutoff = 50); Cocaine Screen,Urine Negative ng/mL (Cutoff= 300); Opiate Screen,Urine Positive ng/mL (Cutoff=300); Phencyclidine Screen,Urine Negative ng/mL (Cutoff=25)
[2019-01-05] MEDS: *HR* HYDROcodone/Acet 5/325 mg TABLET PO PRN (21:59)
[2019-01-05] MEDS: Melatonin 3 MG TABLET PO PRN (22:00)
[2019-01-06 05:35] LABS: Basophils % 0.2 %; Eosinophils % 0.3 %; Hematocrit 32.4 % (35.3-44.9); Hemoglobin 10.6 g/dL (11.5-15.4); Lymphocytes # 1.8 K/mcL (0.6-4.6); Lymphocytes % 19.5 %; Mean Corpuscular HGB Conc 32.7 g/dL (31.6-35.5); Mean Corpuscular Hemoglobin 32.5 pg (28.0-33.3); Mean Corpuscular Volume 99.4 fL (83.0-100.0); Mean Platelet Volume 11.8 fL (9.4-12.4); Monocytes # 0.5 K/mcL (0.0-1.3); Monocytes % 5.5 %; Neutrophils # 6.8 K/mcL (1.6-8.9); Platelet Count 193 K/mcL (140-400); Red Blood Count 3.26 M/mcL (3.82-4.97); Red Cell Distribution Width 12.7 % (11.5-14.5); Segmented Neutrophils % 73.5 %; White Blood Count 9.3 K/mcL (4.3-11.1)
[2019-01-06 05:43] LABS: INR 0.9; Prothrombin Time 10.6 Seconds (9.4-12.1)
[2019-01-06 05:52] LABS: BUN/Creatinine Ratio 18 (6-26); Blood Urea Nitrogen 12 mg/dL (8-23); Calcium 8.6 mg/dL (8.6-10.3); Carbon Dioxide 23 mEq/L (23-29); Chloride 108 mEq/L (98-107); Glucose 95 mg/dL (70-105); Magnesium 1.2 mg/dL (1.6-2.6); Osmolality,Calculated 276 (280-300); Potassium 4.2 mEq/L (3.5-5.1); Sodium 133 mEq/L (136-145); eGFR For African Americans > 60 (> 60); eGFR For Non-African Americans > 60 (> 60)
[2019-01-06] MEDS: Sucralfate 1 GM TABLET PO SCH ×2 (06:38→15:58)
[2019-01-06] MEDS: Insulin LISPRO 300 UNITS/3 ML VIAL SQ SCH ×4 (07:25→21:50)
[2019-01-06] MEDS: Nicotine 21 MG PATCH.TD24 TD SCH (09:58)
--- NOTE | 2019-01-06 09:59 | Internal Med Progress Note ---
Hospitalist Progress Note - Encounter Date of Encounter: 01/06/19 Time of Encounter: 09:00 - Subjective Interval History: awake in chair, I witnessed her get up from chair to bed with unsteady gait. She ate breakfast today and tolerated meals yesterday and today without abd pain, n or v. She has continued loose stools at baseline. She admits she has an unsteady gait, has fear of falling and no longer has walker at home. Agreeable to PT eval. She declines inpt cscope due to her previous sxs and that she couldn't likely tolerate prep but is agreeable to outpt cscope - Exam Vitals: Temp Pulse Resp BP Pulse Ox 97.8 F 87 16 137/71 95 01/06/19 07:02 01/06/19 07:02 01/06/19 07:02 01/06/19 07:02 01/06/19 07:02 Exam: gen- alert, awake,appears stated age cv- reg rate and rhythm, normal s1,s2 lungs- ctabl, normal resp effort on room air abd- soft, non tender, non distended, + bs neuro- AAOx3 - Assessment and Plan (1) Nausea and vomiting Current Visit: Yes Status: Resolved (2) Intermittent left upper quadrant abdominal pain Current Visit: Yes Status: Resolved (3) Loose stools Current Visit: Yes Status: Chronic - Summary of Assessment and Plan Summary of Assessment and Plan: Intractable N/V for one month Chronic Diarrhea and Abdominal pain Ruled out ischemic bowel w CTA EGD 01/05 with bxs taken for GE junction granular tissue, antrum mucosa changes and duodenal bulb erythema -PPI PO, Carafate w good effect, ADAT, fu with Dr Casanova outpt for bx results and for outpt csope for chronic loose stools (not going to be preformed this admit due to n/v and need to have improved sxs to do prep) Hypomagnesemia- IV repletion today, fu in am Chronic Conditions: DM- SSI and prn hypoglycemics, hold home oral agent, will need to hold post dye imaging until 01/07 hx drug seeking behavior + has Fibromyalgia - cont home opiates and do not advance further CVA hx- asa/statin have been held by PCP, will not resume here, defer to PCP COPD, stable vte ppx scds She is a BMAT 1, however on visualization of her walking she has unsteady gait and is high fall risk--pt /ot/cm evals order, hope for dc to home in next 24h pending their recommendations as she is medically stable to do so Internal Medicine: Result - Labs CBC & Chem 7: 01/06/19 05:11 01/06/19 05:11 Labs: Short CBC 01/06/19 Range/Units 05:11 WBC 9.3 (4.3-11.1) K/mcL Hgb 10.6 L (11.5-15.4) g/dL Hct 32.4 L (35.3-44.9) % Plt Count 193 (140-400) K/mcL Neutrophils # 6.8 (1.6-8.9) K/mcL BMP 01/06/19 05:11 Sodium 133 L Potassium 4.2 Chloride 108 H Carbon Dioxide 23 BUN 12 Creatinine 0.65 Glucose 95 Calcium 8.6 Urine 01/05/19 Range/Units 15:50 Urine Color Yellow (Yellow) Urine Clarity Clear (Clear) Urine pH 6.0 (5.0-8.0) pH Units Ur Specific [place] > 1.030 H (1.010-1.025) Urine Protein Trace (Neg-Trace) mg/dL Urine Glucose (UA) Normal (Normal) mg/dL - ABG Interpretation ABG results: PT/INR, D-dimer PT 10.6 Seconds (9.4-12.1) 01/06/19 05:11 Consult Discharge Plan - Plan Referrals: Stanton Casanova MD [Partnered Physician] - Gene Cevallos MD [Partnered Physician] - Giulia Moody MD [Primary Care Provider] - (1) Nausea and vomiting Qualifiers: Vomiting type: cyclical vomiting Vomiting Intractability: non-intractable Qualified Code(s): G43.A0 - Cyclical vomiting, not intractable
[2019-01-06] MEDS: *HR* OxyCODONE Immed Rel 15 MG TABLET PO PRN (15:58)
[2019-01-06] MEDS: *HR* Promethazine 25 MG/ML VIAL IVP PRN ×2 (16:18→23:44)
[2019-01-06] MEDS: Melatonin 3 MG TABLET PO PRN (21:51)
[2019-01-06] MEDS: *HR* HYDROcodone/Acet 5/325 mg TABLET PO PRN (21:51)
[2019-01-07 04:40] LABS: BUN/Creatinine Ratio 13 (6-26); Blood Urea Nitrogen 10 mg/dL (8-23); Calcium 8.3 mg/dL (8.6-10.3); Carbon Dioxide 21 mEq/L (23-29); Chloride 106 mEq/L (98-107); Glucose 138 mg/dL (70-105); Magnesium 1.7 mg/dL (1.6-2.6); Osmolality,Calculated 283 (280-300); Potassium 3.8 mEq/L (3.5-5.1); Sodium 136 mEq/L (136-145); eGFR For African Americans > 60 (> 60); eGFR For Non-African Americans > 60 (> 60)
--- NOTE | 2019-01-07 08:02 | Discharge Summary ---
- NOTES TO OUTPATIENT PROVIDER Notes to Outpatient Provider: Admitted for intractable nausea and vomiting x1 month. Additionally reporting chronic diarrhea. EGD with bxs taken for abnormal appearing tissue, otherwise unremarkable. Sxs resolved with PPI and carafate. Needs to follow up w Dr Casanova of gen surg for bx results and outpt colonoscopy for chonic loose bms. CTAs this admit and previous revealed arterial disease. 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 She is referred to Dr Mart lynch for further evaluation. Imaging here showed no ischemic bowel or mesentery. Orders not resulted at time of discharge: Pending orders 01/05/19 11:12 Surgical Pathology [PTH] Routine Date of Encounter: 01/07/19 Time of Encounter: 08:15 - Discharge Diagnosis (1) Nausea and vomiting Priority: Primary Status: Resolved Qualifiers: Vomiting type: unspecified Vomiting Intractability: non-intractable Qualified Code(s): R11.2 - Nausea with vomiting, unspecified (2) Intermittent left upper quadrant abdominal pain Priority: Secondary Status: Resolved (3) Loose stools Priority: Secondary Status: Chronic (4) Arterial vascular disease Priority: Secondary Status: Chronic Hospital course: Ms. Martinez is a 68 year old female w DM, hx CVA, COPD and one month of nausea and vomiting with long standing history of loose bms. She has presented to ED/hospital with similar sxs inpast. She had prior imaging done 12/11/18 that showed distal esophageal thickening suggestive of esopahgitis and severe luminal narrowing of the proximal JOSELUIS. She was transferred to [facility] for evaluation of her n/v/d and concern it could be ischemia related given her hx. 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 EGD 01/05 with bxs taken for GE junction granular tissue, antrum mucosa changes and duodenal bulb erythema. She was started on PPI PO, Carafate with resolution of nausea and emesis and is tolerating oral intake without issue at wa. She will fu with Dr Edilberto lynch for bx results and for outpt csope (not going to be preformed this admit due to recent n/v and need to ensure completely resolved to do prep). Incidental arterial changes were not suspected to be cause of sxs as d/w surgery this admission. Outpt fu with Dr Cevallos is recommended for further eval. Her chronic conditions remained stable. She is being discharged in stable condition. Discharge discussed with: patient, nurse, social work, case management, co nsultant - Time Spent with Patient Time spent: Greater than 30 minutes (45 min) - Discharge Medications Prescriptions: New Sucralfate [Carafate] 1 gm PO 0730,1630 #60 tablet Omeprazole [PriLOSEC] 40 mg PO DAILY@0630 #30 capsule. Continued HYDROcodone/Acet 5/325 mg [[place] 5-325 mg] 1 tab PO Q6H PRN PRN Reason: Pain Promethazine [Phenergan] 12.5 mg PO Q6HR Oxymorphone HCl [Opana] 10 mg PO Q4H PRN PRN Reason: Pain Amitriptyline HCl 100 mg PO HS PRN PRN Reason: Sleep Discontinued raNITIdine HCl [Zantac] 150 mg PO BID Home Medications: Amitriptyline HCl 100 mg PO HS PRN 01/04/19 [History] HYDROcodone/Acet 5/325 mg [[place] 5-325 mg] 1 tab PO Q6H PRN 01/04/19 [History] Oxymorphone HCl [Opana] 10 mg PO Q4H PRN 01/04/19 [History] Promethazine [Phenergan] 12.5 mg PO Q6HR 01/04/19 [History] Omeprazole [PriLOSEC] 40 mg PO DAILY@0630 #30 capsule. 01/07/19 [Rx] Sucralfate [Carafate] 1 gm PO 0730,1630 #60 tablet 01/07/19 [Rx] Allergies/Adverse Reactions: Allergy/AdvReac Type Severity Reaction Status Date / Time gentamicin Allergy Unknown See Verified 01/05/19 12:11 Comments Penicillins Allergy Unknown See Verified 01/05/19 12:11 Comments sertraline [From Zoloft] Allergy Unknown See Verified 01/05/19 12:11 Comments tramadol Allergy Unknown See Verified 01/05/19 12:11 Comments trazodone Allergy Unknown See Verified 01/05/19 12:11 Comments atorvastatin [From Lipitor] AdvReac tingling Verified 01/05/19 12:11 duloxetine [From Cymbalta] AdvReac Numbness Verified 01/05/19 12:11 ketorolac [From Toradol] AdvReac tingling Verified 01/05/19 12:11 morphine AdvReac see comment Verified 01/05/19 12:11 ondansetron AdvReac see comment Verified 01/05/19 12:11 [From Zofran (as hydrochloride)] prochlorperazine AdvReac see comment Verified 01/05/19 12:11 Paper Tape AdvReac See Uncoded 01/05/19 12:11 Comments Date of admission: 01/06/19 16:27 Primary care physician: Giulia Moody MD Consults: 01/04/19 16:43 Consult to Nutrition [CONS] Routine Comment: Consulting Provider: NUTRITION Reason for Dietary Consult: PO Supplementation 01/04/19 17:02 Consult to Surgery [CONS] Routine Consulting Provider: Acute Care Surgery Reason for Consult: Patient with concern for esophagitis/gastritis, highly unlikely mesenteric ischemia Time Notified: 17:03 Call Completed: Yes 01/06/19 10:01 Consult to Physical Therapy [CONS] Routine Comment: Evaluate, develop and implement POC Reason for Consult: dispo needs eval, noted to be BMAT 1 but visualized unstteady on her feet, no longer has walker at home Does patient have active BEDREST order?: No Is patient medically & hemodynamically stable?: Yes Patient assessed for mobility or mobilized this visit?: Yes OT [Consult to Occupational Therapy] [CONS] Routine Comment: Evaluate, develop and implement POC Reason for Consult: dispo needs assessment Does patient have active BEDREST order?: No Is patient medically & hemodynamically stable?: Yes Patient assessed for mobility or mobilized this visit?: Yes 01/06/19 10:02 Consult to Case Management [CONS] Routine Comment: dispo needs assessment, freq hospital visits Discharging clinician: Kamilah Urbina - Constitutional Vitals: Temp Pulse Resp BP Pulse Ox 98.2 F 86 15 117/68 97 01/07/19 06:52 01/07/19 06:52 01/07/19 06:52 01/07/19 06:52 01/07/19 06:52 Exam: Awake, eating breakfast in chair. Feeling very well. No abd pain, nausea or emesis. Has not had any diarrhea today. Discussed dc plan and answered all questions. gen- alert, awake,appears stated age cv- reg rate and rhythm, normal s1,s2, no le edema lungs- ctabl, normal resp effort on room air abd- soft, non tender, non distended, + bs neuro- AAOx3 - Patient Status Condition: Good Functional capacity at discharge: uses cane/walker Overall status at discharge: patient is back to baseline - Discharge Instructions Follow Up With: Stanton Casanova MD [Partnered Physician] - Gene Cevallos MD [Partnered Physician] - Giulia Moody MD [Primary Care Provider] - Additional Instructions: You were admitted to monitor ongoing nausea and vomiting that was prohibiting you from eating. EGD (scope of esophagus) revealed some abnormal tissues in the esophagus, stomach and duodenum. The surgeon took biopsies and will go over results when he sees you outpatient. As we discussed, you need an outpatient colonoscopy with him to evaluate your chronic diarrhea. New medications that helped your nausea and vomiting are being prescribed. They are called Pantoprazole and Carafate. 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 Additionally, as we discussed, you have narrowing of arteries in your abdomen and going into your legs. This is called Atherosclerotic disease of your arteries. Some arteries are narrowed and others appear blocked. You are being reffered to Dr Cevallos the vascular surgeon to evaluate these further as an outpt. If the office doesn't call you and give you appt date and time, let your primary care doctor know so that they can help you arrange appt. SEE YOUR PRIMARY DOCTOR WITHIN THE NEXT WEEK TO FOLLOW UP Notify physician if symptoms return. - Diet and Activity Diet: advance to your usual diet, diabetic diet, low fat, low cholesterol, low salt diet
[2019-01-07] MEDS: *HR* OxyCODONE Immed Rel 15 MG TABLET PO PRN (09:52)
[2019-01-07] MEDS: Sucralfate 1 GM TABLET PO SCH ×2 (09:52→16:37)
[2019-01-07] MEDS: Nicotine 21 MG PATCH.TD24 TD SCH (09:53)
[2019-01-07] MEDS: Insulin LISPRO 300 UNITS/3 ML VIAL SQ SCH ×4 (09:56→21:35)
--- NOTE | 2019-01-07 13:07 | Internal Med Progress Note ---
Hospitalist Progress Note - Encounter Date of Encounter: 01/07/19 Time of Encounter: 09:00 - Subjective Interval History: awake inchair eating, no nausea or emesis. no abd pain. no diarrhea today. awaiting pt eval for dispo recs given she appears to be a fall risk at home - Exam Vitals: Temp Pulse Resp BP Pulse Ox 98.1 F 94 15 112/60 95 01/07/19 10:57 01/07/19 10:57 01/07/19 10:57 01/07/19 10:57 01/07/19 10:57 Exam: gen- alert, awake,appears stated age cv- reg rate and rhythm, normal s1,s2, no le edema lungs- ctabl, normal resp effort on room air abd- soft, non tender, non distended, + bs neuro- AAOx3 - Assessment and Plan (1) Nausea and vomiting Current Visit: Yes Status: Resolved (2) Intermittent left upper quadrant abdominal pain Current Visit: Yes Status: Resolved (3) Loose stools Current Visit: Yes Status: Chronic (4) Arterial vascular disease Current Visit: Yes Status: Chronic - Summary of Assessment and Plan Summary of Assessment and Plan: Intractable N/V for one month, resolved Chronic Diarrhea Ruled out ischemic bowel w CTA EGD 01/05 with bxs taken for GE junction granular tissue, antrum mucosa changes and duodenal bulb erythema -PPI PO, Carafate w good effect, fu with Dr Edilberto lynch for bx results and for outpt csope for chronic loose stools (not going to be preformed this admit due to n/v and need to have improved sxs to do prep) CTA A/P revealed 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 She has Known atherosclerotic disease including JOSELUIS on prior studies As d/w surgery this admission sxs not related to ischemia -will refer to Dr Cevallos on discharge for further evaluation Chronic Conditions: DM- SSI and prn hypoglycemics, hold home oral agent, will need to hold post dye imaging until 01/07 hx drug seeking behavior + has Fibromyalgia - cont home opiates and do not advance further CVA hx- asa/statin have been held by PCP, will not resume here, defer to PCP COPD, stable vte ppx scds dispo- she has been seen by PT and SW communicated rec today of snf placement, she is unsafe at home due to fall risk, pt agreeable to placement and SW beginning process Internal Medicine: Result - Labs CBC & Chem 7: 01/06/19 05:11 01/07/19 03:58 Labs: BMP 01/07/19 03:58 Sodium 136 Potassium 3.8 Chloride 106 Carbon Dioxide 21 L BUN 10 Creatinine 0.77 Glucose 138 H Calcium 8.3 L - ABG Interpretation ABG results: PT/INR, D-dimer PT 10.6 Seconds (9.4-12.1) 01/06/19 05:11 Consult Discharge Plan - Plan Additional Instructions: You were admitted to monitor ongoing nausea and vomiting that was prohibiting you from eating. EGD (scope of esophagus) revealed some abnormal tissues in the esophagus, stomach and duodenum. The surgeon took biopsies and will go over results when he sees you outpatient. As we discussed, you need an outpatient colonoscopy with him to evaluate your chronic diarrhea. New medications that helped your nausea and vomiting are being prescribed. They are called Pantoprazole and Carafate. 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 Additionally, as we discussed, you have narrowing of arteries in your abdomen and going into your legs. This is called Atherosclerotic disease of your arteries. Some arteries are narrowed and others appear blocked. You are being reffered to Dr Cevallos the vascular surgeon to evaluate these further as an outpt . If the office doesn't call you and give you appt date and time, let your primary care doctor know so that they can help you arrange appt. SEE YOUR PRIMARY DOCTOR WITHIN THE NEXT WEEK TO FOLLOW UP Notify physician if symptoms return. Referrals: Stanton Casanova MD [Partnered Physician] - Gene Cevallos MD [Partnered Physician] - Giulia Moody MD [Primary Care Provider] - (1) Nausea and vomiting Qualifiers: Vomiting type: unspecified Vomiting Intractability: non-intractable Qualified Code(s): R11.2 - Nausea with vomiting, unspecified
[2019-01-07] MEDS: *HR* HYDROcodone/Acet 5/325 mg TABLET PO PRN (18:04)
[2019-01-07] MEDS: Melatonin 3 MG TABLET PO PRN (20:12)
--- NOTE | 2019-01-08 07:09 | Internal Med Progress Note ---
Hospitalist Progress Note - Encounter Date of Encounter: 01/08/19 Time of Encounter: 08:40 - Subjective Interval History: awake, pleasant, no complaints, cont to eat and drink without n/v/d. no abd pain. awaiting snf placement due to fall risk, she is aware - Exam Vitals: Temp Pulse Resp BP Pulse Ox 98.2 F 89 14 141/67 97 01/08/19 03:06 01/08/19 03:06 01/08/19 03:06 01/08/19 03:06 01/08/19 03:06 Exam: gen- alert, awake,appears stated age, pleasant cv- reg rate and rhythm, normal s1,s2, lungs- ctabl, normal resp effort on room air abd- soft, non tender, non distended, + bs neuro- AAOx3 - Assessment and Plan (1) Nausea and vomiting Current Visit: Yes Status: Resolved (2) Intermittent left upper quadrant abdominal pain Current Visit: Yes Status: Resolved (3) Loose stools Current Visit: Yes Status: Chronic (4) Arterial vascular disease Current Visit: Yes Status: Chronic - Summary of Assessment and Plan Summary of Assessment and Plan: Intractable N/V for one month, resolved Chronic Diarrhea Ruled out ischemic bowel w CTA EGD 01/05 with bxs taken for GE junction granular tissue, antrum mucosa changes a nd duodenal bulb erythema -PPI PO, Carafate w good effect, fu with Dr Casanova outpt for bx results and for outpt csope for chronic loose stools (not going to be preformed this admit due to n/v and need to have improved sxs to do prep) CTA A/P revealed 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 She has Known atherosclerotic disease including JOSELUIS on prior studies As d/w surgery this admission sxs not related to ischemia -will refer to Dr Cevallos on discharge for further evaluation Chronic Conditions: DM- SSI and prn hypoglycemics, hold home oral agent, will need to hold post dye imaging until 01/07 hx drug seeking behavior + has Fibromyalgia - cont home opiates and do not advance further CVA hx- asa/statin have been held by PCP, will not resume here, defer to PCP COPD, stable vte ppx scds dispo- she has been seen by PT and SW communicated rec of snf placement, she is unsafe at home due to fall risk and must remain inpt until placed to snf, pt agreeable to placement and SW beginning process medically stable for dc when placed Internal Medicine: Result - Labs CBC & Chem 7: 01/06/19 05:11 01/07/19 03:58 - ABG Interpretation ABG results: PT/INR, D-dimer PT 10.6 Seconds (9.4-12.1) 01/06/19 05:11 Consult Discharge Plan - Plan Additional Instructions: You were admitted to monitor ongoing nausea and vomiting that was prohibiting you from eating. EGD (scope of esophagus) revealed some abnormal tissues in the esophagus, stomach and duodenum. The surgeon took biopsies and will go over results when he sees you outpatient. As we discussed, you need an outpatient colonoscopy with him to evaluate your chronic diarrhea. New medications that helped your nausea and vomiting are being prescribed. They are called Pantoprazole and Carafate. 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 Additionally, as we discussed, you have narrowing of arteries in your abdomen and going into your legs. This is called Atherosclerotic disease of your arteries. Some arteries are narrowed and others appear blocked. You are being reffered to Dr Cevallos the vascular surgeon to evaluate these further as an outpt. If the office doesn't call you and give you appt date and time, let your primary care doctor know so that they can help you arrange appt. SEE YOUR PRIMARY DOCTOR WITHIN THE NEXT WEEK TO FOLLOW UP Notify physician if symptoms return. Referrals: Stanton Casanova MD [Partnered Physician] - Gene Cevallos MD [Partnered Physician] - Giulia Moody MD [Primary Care Provider] - (1) Nausea and vomiting Qualifiers: Vomiting type: unspecified Vomiting Intractability: non-intractable Qualified Code(s): R11.2 - Nausea with vomiting, unspecified
[2019-01-08] MEDS: Nicotine 21 MG PATCH.TD24 TD SCH (09:01)
[2019-01-08] MEDS: Sucralfate 1 GM TABLET PO SCH ×2 (09:01→16:09)
[2019-01-08] MEDS: Insulin LISPRO 300 UNITS/3 ML VIAL SQ SCH ×4 (09:02→22:37)
[2019-01-08] MEDS: *HR* HYDROcodone/Acet 5/325 mg TABLET PO PRN ×2 (09:09→20:41)
[2019-01-08] MEDS: *HR* Promethazine 25 MG/ML VIAL IVP PRN (13:38)
[2019-01-08] MEDS: Melatonin 3 MG TABLET PO PRN (20:42)
[2019-01-08] MEDS: *HR* OxyCODONE Immed Rel 15 MG TABLET PO PRN (22:41)
[2019-01-09 05:48] LABS: Hematocrit 27.7 % (35.3-44.9); Hemoglobin 9.3 g/dL (11.5-15.4); Mean Corpuscular HGB Conc 33.6 g/dL (31.6-35.5); Mean Corpuscular Hemoglobin 32.2 pg (28.0-33.3); Mean Corpuscular Volume 95.8 fL (83.0-100.0); Mean Platelet Volume 11.7 fL (9.4-12.4); Platelet Count 155 K/mcL (140-400); Red Blood Count 2.89 M/mcL (3.82-4.97); Red Cell Distribution Width 12.9 % (11.5-14.5); White Blood Count 5.6 K/mcL (4.3-11.1)
[2019-01-09 06:07] LABS: BUN/Creatinine Ratio 17 (6-26); Blood Urea Nitrogen 13 mg/dL (8-23); Calcium 8.5 mg/dL (8.6-10.3); Carbon Dioxide 27 mEq/L (23-29); Chloride 104 mEq/L (98-107); Glucose 194 mg/dL (70-105); Osmolality,Calculated 287 (280-300); Potassium 3.7 mEq/L (3.5-5.1); Sodium 136 mEq/L (136-145); eGFR For African Americans > 60 (> 60); eGFR For Non-African Americans > 60 (> 60)
[2019-01-09] MEDS: Nicotine 21 MG PATCH.TD24 TD SCH (08:34)
[2019-01-09] MEDS: Sucralfate 1 GM TABLET PO SCH ×2 (08:34→18:17)
[2019-01-09] MEDS: Insulin LISPRO 300 UNITS/3 ML VIAL SQ SCH ×4 (08:35→21:41)
[2019-01-09] MEDS: *HR* HYDROcodone/Acet 5/325 mg TABLET PO PRN ×2 (10:16→18:44)
--- NOTE | 2019-01-09 17:48 | Internal Med Progress Note ---
Hospitalist Progress Note - Encounter Date of Encounter: 01/09/19 Time of Encounter: 09:00 - Subjective Interval History: Ms Martinez is currently admitted for nausea/vomiting and PVD. She remains moderate risk at this time. Ms Martinez is doing OK. She is having a small amount of nausea today. Awaiting insurance information for discharge planning. - Exam Vitals: Temp Pulse Resp BP Pulse Ox 97.6 F 89 16 130/68 95 01/09/19 15:10 01/09/19 15:10 01/09/19 15:10 01/09/19 15:10 01/09/19 15:10 Exam: General: Alert and oriented. Comfortable at this time. Skin: Normal color, no rash, H: Normocephalic. EENT: EOMI, Mucus membranes moist. Cardiovascular: Normal S1 & S2, no murmurs Pulse regular. Lungs: Normal breath sounds, no wheezes or crackles. Abdomen: Soft, non-tender, Normal bowel sounds. Extremities: No deformity, no edema or tenderness, Neurological: Normal cognition and motor skills. Pulses: radial pulses normal +2. Rest of the physical exam is non contributory - Assessment and Plan (1) Nausea and vomiting Current Visit: Yes Status: Resolved Assessment and Plan: Pt presented to ED with N/V - overall improved. EGD done. Continue current supportive care. (2) Peripheral arterial disease Current Visit: Yes Status: Chronic Assessment and Plan: Chronic issue (3) Diabetes mellitus Current Visit: No Status: Chronic Assessment and Plan: Blood sugar with fair control. Continue current meds. - Time Spent with Patient Total time spent is greater than 50% in coordination of care (as documented) at patient's floor/unit and/or counseling patient: Internal Medicine: Result - Labs CBC & Chem 7: 01/09/19 05:34 01/09/19 05:34 Labs: Short CBC 01/09/19 Range/Units 05:34 WBC 5.6 (4.3-11.1) K/mcL Hgb 9.3 L (11.5-15.4) g/dL Hct 27.7 L (35.3-44.9) % Plt Count 155 (140-400) K/mcL BMP 01/09/19 05:34 Sodium 136 Potassium 3.7 Chloride 104 Carbon Dioxide 27 BUN 13 Creatinine 0.78 Glucose 194 H Calcium 8.5 L - ABG Interpretation ABG results: PT/INR, D-dimer PT 10.6 Seconds (9.4-12.1) 01/06/19 05:11 Consult Discharge Plan - Plan Additional Instructions: You were admitted to monitor ongoing nausea and vomiting that was prohibiting you from eating. EGD (scope of esophagus) revealed some abnormal tissues in the esophagus, stomach and duodenum. The surgeon took biopsies and will go over results when he sees you outpatient. As we discussed, you need an outpatient colonoscopy with artem m to evaluate your chronic diarrhea. New medications that helped your nausea and vomiting are being prescribed. They are called Pantoprazole and Carafate. A month month supply prescription was sent to your [facility] and should be ready for diamond picker. Additionally, as we discussed, you have narrowing of arteries in your abdomen and going into your legs. This is called Atherosclerotic disease of your arteries. Some arteries are narrowed and others appear blocked. You are being reffered to Dr Cevallos the vascular surgeon to evaluate these further as an outpt. If the office doesn't call you and give you appt date and time, let your primary care doctor know so that they can help you arrange appt. SEE YOUR PRIMARY DOCTOR WITHIN THE NEXT WEEK TO FOLLOW UP Notify physician if symptoms return. Referrals: Stanton Casanova MD [Partnered Physician] - Gene Cevallos MD [Partnered Physician] - Giulia Moody MD [Primary Care Provider] - (1) Nausea and vomiting Qualifiers: Vomiting type: cyclical vomiting Vomiting Intractability: non-intractable Qualified Code(s): G43.A0 - Cyclical vomiting, not intractable (3) Diabetes mellitus Qualifiers: Diabetes mellitus type: type 2 Diabetes mellitus residential insulin use: with residential use Diabetes mellitus complication status: with other specified complication Qualified Code(s): E11.69 - Type 2 diabetes mellitus with other specified complication; 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
[2019-01-09] MEDS: *HR* OxyCODONE Immed Rel 15 MG TABLET PO PRN (21:41)
[2019-01-09] MEDS: Melatonin 3 MG TABLET PO PRN (21:41)
[2019-01-10] MEDS: Sucralfate 1 GM TABLET PO SCH ×2 (08:18→18:12)
[2019-01-10] MEDS: *HR* HYDROcodone/Acet 5/325 mg TABLET PO PRN (08:18)
[2019-01-10] MEDS: Insulin LISPRO 300 UNITS/3 ML VIAL SQ SCH ×4 (08:18→21:44)
[2019-01-10] MEDS: Nicotine 21 MG PATCH.TD24 TD SCH (08:18)
--- NOTE | 2019-01-10 14:51 | Internal Med Progress Note ---
Hospitalist Progress Note - Encounter Date of Encounter: 01/10/19 Time of Encounter: 08:45 - Subjective Interval History: Ms Martinez is currently hospitalized for nausea and vomiting. She remains low to moderate risk at this time. Ms Martinez is feeling OK. No fever or chills. NO CP or SOB. No cough. Awaiting d/c planning. - Exam Vitals: Temp Pulse Resp BP Pulse Ox 97.5 F L 84 16 144/76 91 01/10/19 11:25 01/10/19 11:25 01/10/19 11:25 01/10/19 08:48 01/10/19 11:25 Exam: General: Alert and oriented. Comfortable at this time. Sitting on edge of bed. Skin: Normal color, no rash, H: Normocephalic. EENT: EOMI, Mucus membranes moist. Cardiovascular: Normal S1 & S2, no murmurs Pulse regular. Not tachycardic. Lungs: Normal breath sounds, no wheezes or crackles. Abdomen: Soft, non-tender, Normal bowel sounds. Extremities: No deformity, no edema or tenderness, Neurological: Normal cognition and motor skills. Pulses: radial pulses normal +2. Rest of the physical exam is non contributory - Assessment and Plan (1) Nausea and vomiting Current Visit: Yes Status: Resolved Assessment and Plan: Pt presented to ED with N/V Overall she has improvement with current management. (2) Peripheral arterial disease Current Visit: Yes Status: Chronic Assessment and Plan: Chronic issue (3) Diabetes mellitus Current Visit: No Status: Chronic Assessment and Plan: Blood sugar with fair control. Will adjust meds today. (4) Discharge planning issues Current Visit: Yes Status: Acute Assessment and Plan: Continues to have issues with discharge - She insists she has different insurance than Medicare but no one in family has brought her card in to verify this. Today it was found that she is only Medicare A and B Now awaiting facility to make determination about her rehab. Hopeful d/c tomorrow if all arranged. - Time Spent with Patient Total time spent is greater than 50% in coordination of care (as documented) at patient's floor/unit and/or counseling patient: Internal Medicine: Result - Labs CBC & Chem 7: 01/09/19 05:34 01/09/19 05:34 - ABG Interpretation ABG results: PT/INR, D-dimer PT 10.6 Seconds (9.4-12.1) 01/06/19 05:11 Consult Discharge Plan - Plan Additional Instructions: You were admitted to monitor ongoing nausea and vomiting that was prohibiting you from eating. EGD (scope of esophagus) revealed some abnormal tissues in the esophagus, stomach and duodenum. The surgeon took biopsies and will go over results when he sees you outpatient. As we discussed, you need an outpatient colonoscopy with him to evaluate your chronic diarrhea. New medications that helped your nausea and vomiting are being prescribed. They are called Pantoprazole and Carafate. A month month supply prescription was sent to your [facility] and should be ready for product picker. Additionally, as we discussed, you have narrowing of arteries in your abdomen and going into your legs. This is called Atherosclerotic disease of your arteries. Some arteries are narrowed and others appear blocked. You are being reffered to Dr Cevallos the vascular surgeon to evaluate these further as an outpt. If the office doesn't call you and give you appt date and time, let your primary care doctor know so that they can help you arrange appt. SEE YOUR PRIMARY DOCTOR WITHIN THE NEXT WEEK TO FOLLOW UP Notify physician if symptoms return. Referrals: Stanton Casanova MD [Partnered Physician] - Gene Cevallos MD [Partnered Physician] - Giulia Moody MD [Primary Care Provider] - (1) Nausea and vomiting Qualifiers: Vomiting type: cyclical vomiting Vomiting Intractability: non-intractable Qualified Code(s): G43.A0 - Cyclical vomiting, not intractable (3) Diabetes mellitus Qualifiers: Diabetes mellitus type: type 2 Diabetes mellitus assisted insulin use: with terminal operator use Diabetes mellitus complication status: with other specified complication Qualified Code(s): E11.69 - Type 2 diabetes mellitus with other specified complication; Z79.4 - termite treater (current) use of insulin
[2019-01-10] MEDS: *HR* OxyCODONE Immed Rel 15 MG TABLET PO PRN (20:00)
[2019-01-10] MEDS ORDERED: Insulin DETEMIR 100 UNIT/ML X5UNITS SQ SCH (21:00)
[2019-01-10] MEDS: Melatonin 3 MG TABLET PO PRN (21:36)
[2019-01-11] MEDS: *HR* HYDROcodone/Acet 5/325 mg TABLET PO PRN (05:25)
[2019-01-11] MEDS: Sucralfate 1 GM TABLET PO SCH (08:15)
[2019-01-11] MEDS: Nicotine 21 MG PATCH.TD24 TD SCH (08:15)
[2019-01-11] MEDS: Insulin LISPRO 300 UNITS/3 ML VIAL SQ SCH ×2 (08:16→11:53)
--- NOTE | 2019-01-11 11:33 | Discharge Summary ---
- NOTES TO OUTPATIENT PROVIDER Notes to Outpatient Provider: Ms Martinez was admitted for intractable N/V. She was found to have iliac disease and seen by vascular and surgery. She was seen by PT/OT and discharged to SNF. Date of Encounter: 01/11/19 Time of Encounter: 11:30 - Discharge Diagnosis (1) Nausea and vomiting Priority: Primary Status: Resolved Qualifiers: Vomiting type: cyclical vomiting Vomiting Intractability: non-intractable Qualified Code(s): G43.A0 - Cyclical vomiting, not intractable (2) Peripheral arterial disease Priority: Secondary Status: Chronic (3) Diabetes mellitus Priority: Secondary Status: Chronic Qualifiers: Diabetes mellitus type: type 2 Diabetes mellitus fpc insulin use: with fpc use Diabetes mellitus complication status: with other specified complication Qualified Code(s): E11.69 - Type 2 diabetes mellitus with other specified complication; Z79.4 - long term (current) use of insulin Hospital course: Ms. Martinez is a 68 year old female presented with N/V. She was placed in observation. Ms Martinez was placed in observation for intractable N/V. There was concern for ischemic bowel. She was evaluated by surgery and had improvement in her symptoms. 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 Her symptoms improved and she was seen by PT/OT and rec SNF. Today she is afebrile and ready for discharge. - Time Spent with Patient Total time spent providing and/or coordinating discharge services: 34min - Discharge Medications Prescriptions: New Omeprazole [PriLOSEC] 40 mg PO DAILY@0630 capsule. Sucralfate [Carafate] 1 gm PO 0730,1630 tablet Insulin DETEMIR [Levemir] 5 unit SQ HS [id number] Melatonin 3 mg PO HS PRN tablet PRN Reason: Insomnia Continued HYDROcodone/Acet 5/325 mg [[place] 5-325 mg] 1 tab PO Q6H PRN 2 Days #6 tab PRN Reason: Pain Oxymorphone HCl [Opana] 10 mg PO Q4H PRN 2 Days #6 tab PRN Reason: Pain Promethazine [Phenergan] 12.5 mg PO Q6HR Amitriptyline HCl 100 mg PO HS PRN PRN Reason: Sleep Discontinued raNITIdine HCl [Zantac] 150 mg PO BID Home Medications: Amitriptyline HCl 100 mg PO HS PRN 01/04/19 [History] Promethazine [Phenergan] 12.5 mg PO Q6HR 01/04/19 [History] HYDROcodone/Acet 5/325 mg [[place] 5-325 mg] 1 tab PO Q6H PRN 2 Days #6 tab 01/11/19 [Rx] Insulin DETEMIR [Levemir] 5 unit SQ HS [id number] 01/11/19 [Rx] Melatonin 3 mg PO HS PRN tablet 01/11/19 [Rx] Omeprazole [PriLOSEC] 40 mg PO DAILY@0630 capsule. 01/11/19 [Rx] Oxymorphone HCl [Opana] 10 mg PO Q4H PRN 2 Days #6 tab 01/11/19 [Rx] Sucralfate [Carafate] 1 gm PO 0730,1630 tablet 01/11/19 [Rx] Allergies/Adverse Reactions: Allergy/AdvReac Type Severity Reaction Status Date / Time gentamicin Allergy Unknown See Verified 01/05/19 12:11 Comments Penicillins Allergy Unknown See Verified 01/05/19 12:11 Comments sertraline [From Zoloft] Allergy Unknown See Verified 01/05/19 12:11 Comments tramadol Allergy Unknown See Verified 01/05/19 12:11 Comments trazodone Allergy Unknown See Verified 01/05/19 12:11 Comments atorvastatin [From Lipitor] AdvReac tingling Verified 01/05/19 12:11 duloxetine [From Cymbalta] AdvReac Numbness Verified 01/05/19 12:11 ketorolac [From Toradol] AdvReac tingling Verified 01/05/19 12:11 morphine AdvReac see comment Verified 01/05/19 12:11 ondansetron AdvReac see comment Verified 01/05/19 12:11 [From Zofran (as hydrochloride)] prochlorperazine AdvReac see comment Verified 01/05/19 12:11 Paper Tape AdvReac See Uncoded 01/05/19 12:11 Comments Date of admission: 01/06/19 16:27 Primary care physician: Giulia Moody MD Consults: 01/04/19 16:43 Consult to Nutrition [CONS] Routine Comment: Consulting Provider: NUTRITION Reason for Dietary Consult: PO Supplementation 01/04/19 17:02 Consult to Surgery [CONS] Routine Consulting Provider: Acute Care Surgery Reason for Consult: Patient with concern for esophagitis/gastritis, highly unlikely mesenteric ischemia Time Notified: 17:03 Call Completed: Yes 01/06/19 10:01 Consult to Physical Therapy [CONS] Routine Comment: Evaluate, develop and implement POC Reason for Consult: dispo needs eval, noted to be BMAT 1 but visualized unstteady on her feet, no longer has walker at home Does patient have active BEDREST order?: No Is patient medically & hemodynamically stable?: Yes Patient assessed for mobility or mobilized this visit?: Yes OT [Consult to Occupational Therapy] [CONS] Routine Comment: Evaluate, develop and implement POC Reason for Consult: dispo needs assessment Does patient have active BEDREST order?: No Is patient medically & hemodynamically stable?: Yes Patient assessed for mobility or mobilized this visit?: Yes 01/06/19 10:02 Consult to Case Management [CONS] Routine Comment: dispo needs assessment, [facility] visits Discharging clinician: Sanford Isidro Anticipated date of discharge: 01/11/19 - Constitutional Vitals: Temp Pulse Resp BP Pulse Ox 98.6 F 83 15 102/63 97 01/11/19 07:20 01/11/19 07:20 01/11/19 07:20 01/11/19 07:20 01/11/19 07:20 General appearance: Present: A&O X 3, answers questions appropriately Exam: See below - Head Head exam: Present: normocephalic - Eye Eye exam: Present: EOMI, conjuntiva pink - ENT ENT exam: Present: normal exam - Neck Neck exam general surgery: Present: supple - Respiratory Respiratory exam: Present: CTAB. Absent: rhonchi, wheezes - Cardiovascular Cardiovascular exam: Present: RRR. Absent: tachycardia - GI/Abdominal GI/Abdominal exam: Present: soft. Absent: tenderness - Extremities Exam Extremities exam: Present: warm. Absent: tenderness - Neurological Exam Neurological exam: Present: alert, oriented X3 - Skin Skin exam: Present: dry, warm. Absent: rash - Patient Status Disposition: Transfer SNF Condition: Good Functional capacity at discharge: uses cane/walker Overall status at discharge: patient is progressing back to baseline - Discharge Instructions Follow Up With: Stanton Casanova MD [Partnered Physician] - 01/21/19 4:15 pm Gene Cevallos MD [Partnered Physician] - 02/06/19 1:30 pm Giulia Moody MD [Primary Care Provider] - Additional Instructions: You were admitted to monitor ongoing nausea and vomiting that was prohibiting you from eating. EGD (scope of esophagus) revealed some abnormal tissues in the esophagus, stomach and duodenum. The surgeon took biopsies and will go over results when he sees you outpatient. As we discussed, you need an outpatient colonoscopy with him to evaluate your chronic diarrhea. New medications that helped your nausea and vomiting are being prescribed. They are called Pantoprazole and Carafate. A month month supply prescription was sent to your [facility] and should be ready for corn picker. Additionally, as we discussed, you have narrowing of arteries in your abdomen and going into your legs. This is called Atherosclerotic disease of your arteries. Some arteries are narrowed and others appear blocked. You are being reffered to Dr Cevallos the vascular surgeon to evaluate these further as an outpt. If the office doesn't call you and give you appt date and time, let your primary care doctor know so that they can help you arrange appt. SEE YOUR PRIMARY DOCTOR WITHIN THE NEXT WEEK TO FOLLOW UP Notify physician if symptoms return. - Diet and Activity Activity: as per physical therapy, increase activity as tolerated Diet: diabetic diet
--- NOTE | 2019-01-11 11:35 | Physician Discharge Referral ---
ExtendedCare Referral Info Provider in Charge after Transfer: PCP Institutional Level of Care: Skilled - Diagnosis (1) Nausea and vomiting Priority: Secondary Status: Resolved (2) Peripheral arterial disease Priority: Primary Status: Chronic (3) Diabetes mellitus Priority: Secondary Status: Chronic Prognosis: Good Aware of Diagnosis: Patient Aware of Prognosis: Patient - Transfer Medications Prescriptions: HYDROcodone/Acet 5/325 mg [[place] 5-325 mg] 1 tab PO Q6H PRN 2 Days #6 tab PRN Reason: Pain Prescription Printed Oxymorphone HCl [Opana] 10 mg PO Q4H PRN 2 Days #6 tab PRN Reason: Pain Prescription Printed Home Medications: Amitriptyline HCl 100 mg PO HS PRN 01/04/19 [History] Promethazine [Phenergan] 12.5 mg PO Q6HR 01/04/19 [History] HYDROcodone/Acet 5/325 mg [[place] 5-325 mg] 1 tab PO Q6H PRN 2 Days #6 tab 01/11/19 [Rx] Insulin DETEMIR [Levemir] 5 unit SQ HS [id number] 01/11/19 [Rx] Melatonin 3 mg PO HS PRN tablet 01/11/19 [Rx] Omeprazole [PriLOSEC] 40 mg PO DAILY@0630 capsule. 01/11/19 [Rx] Oxymorphone HCl [Opana] 10 mg PO Q4H PRN 2 Days #6 tab 01/11/19 [Rx] Sucralfate [Carafate] 1 gm PO 0730,1630 tablet 01/11/19 [Rx] Allergies/Adverse Reactions: Allergy/AdvReac Type Severity Reaction Status Date / Time gentamicin Allergy Unknown See Verified 01/05/19 12:11 Comments Penicillins Allergy Unknown See Verified 01/05/19 12:11 Comments sertraline [From Zoloft] Allergy Unknown See Verified 01/05/19 12:11 Comments tramadol Allergy Unknown See Verified 01/05/19 12:11 Comments trazodone Allergy Unknown See Verified 01/05/19 12:11 Comments atorvastatin [From Lipitor] AdvReac tingling Verified 01/05/19 12:11 duloxetine [From Cymbalta] AdvReac Numbness Verified 01/05/19 12:11 ketorolac [From Toradol] AdvReac tingling Verified 01/05/19 12:11 morphine AdvReac see comment Verified 01/05/19 12:11 ondansetron AdvReac see comment Verified 01/05/19 12:11 [From Zofran (as hydrochloride)] prochlorperazine AdvReac see comment Verified 01/05/19 12:11 Paper Tape AdvReac See Uncoded 01/05/19 12:11 Comments - Respiratory Orders None Smoking Cessation: Smoking cessation has been advised. For more information, call the [place] Tobacco Quit Line at 6-915-EKHC-NOW. - Ancillary Orders May use pressure relief devices daily prn, May consult with Dentist, Inventory Technician, User Experience Analyst PRN - Advance Directives Code Status: Full Code - Mobility Orders Chair, Ambulate - Rehabiliation Orders Rehab Potential: Good Rehab Orders: Evaluation for Physical Therapy, Evaluation for Occupational Therapy - Treatments Skin tear care topically daily PRN per policy, May check for fecal impaction rectally daily PRN, Fleet enema rectally every other day PRN cleansing purposes - Diet Orders No Concentrated Sweets CERTIFICATION: I certify that the transfer of the above named patient to an Extended Care Facility is necessary for the continuing treatment of the diagnosis listed. The above information is true and accurate reflection of patient's current condition. Confidential - Redisclosure prohibited without a patient's written consent.
[2019-01-11 11:37] VITALS: BP 109/64
[2019-01-11] MEDS: *HR* OxyCODONE Immed Rel 15 MG TABLET PO PRN (12:27)
[2019-01-11] MEDS ORDERED: 0.9 % Sodium Chloride Mini Bag 100 ML ONE (14:28)
== END 2019-01-11 15:03 | DRG 300 ==
LOC: 3ANU → SUATTDRO 15:13
PROVIDERS: ADMIT Internal Medicine; ATTEND Internal Medicine
PROC: ENDOEBX (2019-01-05 10:30)

== ENCOUNTER 2021-02-20 19:11 | Inpatient (IN) ==
[2021-02-20] MEDS ORDERED: 0.9 % Sodium Chloride 1,000 ML IVC ONE ×2 (19:56→20:14)
[2021-02-20 20:57] LABS: Basophils # 0.1 K/mcL (0.0-0.2); Eosinophils % 0.2 %; Hematocrit 32.3 % (35.3-44.9); Hemoglobin 10.7 g/dL (11.5-15.4); Immature Granulocytes % 6.3 % (0-4); Lymphocytes # 1.4 K/mcL (0.6-4.6); Lymphocytes % 10.1 %; Mean Corpuscular HGB Conc 33.1 g/dL (31.6-35.5); Mean Corpuscular Hemoglobin 31.2 pg (28.0-33.3); Mean Corpuscular Volume 94.2 fL (83.0-100.0); Mean Platelet Volume 11.6 fL (9.4-12.4); Monocytes # 0.7 K/mcL (0.0-1.3); Monocytes % 5.1 %; Platelet Count 322 K/mcL (140-400); Red Blood Count 3.43 M/mcL (3.82-4.97); Segmented Neutrophils % 77.3 %; White Blood Count 13.8 K/mcL (4.3-11.1)
[2021-02-20 20:58] LABS: Neutrophils # 10.7 K/mcL (1.6-8.9)
[2021-02-20 21:00] LABS: Bacteria,Urine Many per hpf (None-Few); Bilirubin,Urine Negative (Negative); Blood,Urine Large (Negative); Clarity,Urine Ex.Turbid (Clear); Color,Urine Yellow (Yellow); Glucose,Urine (UA) >=1000 mg/dL (Normal); Ketones,Urine Negative (Negative); Leukocyte Esterase,Urine Large (Negative); Nitrite,Urine Negative (Negative); PH,Urine 5.5 pH Units (5.0-8.0); Protein,Urine 50 mg/dL (Neg-Trace); RBC,Urine 30-50 per hpf (0-3); Specific Gravity,Urine 1.023 (1.010-1.025); Squamous Epithelial Cell,Urine Moderate per hpf (None-Few); Urobilinogen,Urine Normal (Normal); WBC,Urine TNTC per hpf (0-3)
[2021-02-20 21:01] LABS: VBG HCO3 24 mEq/L (21-27); VBG PCO2 39 mmHg (41-51); VBG PO2 47 mmHg (25-50)
[2021-02-20 21:06] LABS: Amphetamine Screen,Urine Negative ng/mL (Cutoff=1000); Barbiturate Screen,Urine Negative ng/mL (Cutoff=200); Benzodiazepines Screen,Urine Negative ng/mL (Cutoff=200); Cannabinoid Screen,Urine Negative ng/mL (Cutoff = 50); Cocaine Screen,Urine Negative ng/mL (Cutoff= 300); Opiate Screen,Urine Negative ng/mL (Cutoff=300); Phencyclidine Screen,Urine Negative ng/mL (Cutoff=25)
[2021-02-20 21:07] LABS: INR 1.1; Prothrombin Time 11.9 Seconds (9.4-12.1)
[2021-02-20 21:09] LABS: Activated Partial Thrombo Time 28.1 Seconds (26.0-36.0)
[2021-02-20 21:23] LABS: Alanine Aminotransferase 6 Units/L (7-52); Albumin 3.2 g/dL (3.5-5.7); Albumin/Globulin Ratio 0.9 (1.1-2.2); Alkaline Phosphatase 104 Units/L (34-104); Aspartate Amino Transferase 8 Units/L (13-39); BUN/Creatinine Ratio 23 (6-26); Bilirubin,Indirect 0.2 mg/dL (0.0-1.0); Bilirubin,Total 0.2 mg/dL (0.3-1.0); Blood Urea Nitrogen 24 mg/dL (8-23); Calcium 8.5 mg/dL (8.6-10.3); Carbon Dioxide 23 mEq/L (23-29); Chloride 95 mEq/L (98-107); Creatine Kinase 48 Units/L (30-223); Ethanol < 10 mg/dL (Less than 10); Globulin 3.6 g/dL (2.4-3.5); Glucose 574 mg/dL (70-105); Osmolality,Calculated 300 (280-300); Potassium 3.6 mEq/L (3.5-5.1); Sodium 130 mEq/L (136-145); Total Protein 6.8 g/dL (6.4-8.9); Troponin I 0.03 ng/mL (< 0.04); eGFR For African Americans > 60 (> 60); eGFR For Non-African Americans 52 (> 60)
[2021-02-20] MEDS ORDERED: cefTRIAXone 1,000 MG in Water for inj. (sterile) 10 ML IVP ONE (21:30)
[2021-02-20 21:36] LABS: Platelet Estimate Normal (Normal)
[2021-02-20] MEDS ORDERED: Insulin Human Regular 5 UNIT in 0.9 % Sodium Chloride 10 ML IV ONE (21:47)
[2021-02-20] MEDS ORDERED: *HR* HYDROcodone/Acet 5/325 mg TABLET PO ONE (22:09)
[2021-02-20] MEDS ORDERED: Naloxone 0.4 MG/ML INJ IVP PRN (22:26)
[2021-02-20] MEDS ORDERED: Acetaminophen 325 MG TABLET PO PRN (22:26)
[2021-02-20] MEDS ORDERED: Insulin Human Regular 10 UNIT in 0.9 % Sodium Chloride 10 ML IV ONE (22:33)
[2021-02-20] MEDS ORDERED: D5% in Water 1,000 ML IVC PRN (22:34)
[2021-02-20] MEDS ORDERED: Dextrose Gel 15 GM/37.5 ML TUBE PO PRN ×2 (22:34)
[2021-02-20] MEDS ORDERED: *HR* Dextrose 50 % in Water (Syg) 50 ML SYRINGE IVP PRN (22:34)
[2021-02-20] MEDS ORDERED: Ipratropium/Albuterol Neb 3 ML IH PRN (23:54)
[2021-02-21] MEDS: Insulin DETEMIR 100 UNIT/ML X5UNITS SUBQ SCH ×2 (00:05→20:16)
[2021-02-21] MEDS: Ringers Solution, Lactated 1,000 ML IVC SCH ×2 (00:05→08:55)
[2021-02-21] MEDS: Insulin LISPRO 300 UNITS/3 ML VIAL SUBQ SCH ×6 (00:08→20:17)
[2021-02-21] MEDS: Melatonin 3 MG TABLET PO SCH ×2 (00:09→20:16)
[2021-02-21] MEDS ORDERED: *HR* OxyCODONE Immed Rel 5 MG TABLET PO PRN (01:44)
[2021-02-21] MEDS ORDERED: Vancomycin 1,250 MG/262.5 ML IV.SOLN IVPB ONE (02:00)
[2021-02-21] MEDS: Nystatin Cream 15 GM TUBE TP SCH ×4 (02:27→20:27)
[2021-02-21] MEDS: Nystatin POWDER 30 GM BOTTLE TP SCH ×4 (02:27→20:26)
[2021-02-21 03:27] LABS: Hemoglobin 10.5 g/dL (11.5-15.4)
[2021-02-21 03:34] LABS: Mean Platelet Volume 11.5 fL (9.4-12.4); Monocytes % 7.8 %; Red Cell Distribution Width 11.9 % (11.5-14.5)
[2021-02-21 03:36] LABS: Basophils # 0.2 K/mcL (0.0-0.2); Basophils % 1.1 %; Eosinophils # 0.1 K/mcL (0.0-0.6); Eosinophils % 0.7 %; Hematocrit 31.8 % (35.3-44.9); Immature Granulocytes % 6.3 % (0-4); Immature Platelets 6.4 % (1.1-6.1); Lymphocytes # 2.9 K/mcL (0.6-4.6); Lymphocytes % 18.8 %; Mean Corpuscular Hemoglobin 30.9 pg (28.0-33.3); Mean Corpuscular Volume 93.5 fL (83.0-100.0); Monocytes # 1.2 K/mcL (0.0-1.3); Platelet Count 357 K/mcL (140-400); Segmented Neutrophils % 65.3 %; White Blood Count 15.3 K/mcL (4.3-11.1)
[2021-02-21 03:40] LABS: BUN/Creatinine Ratio 28 (6-26); Blood Urea Nitrogen 25 mg/dL (8-23); Calcium 8.4 mg/dL (8.6-10.3); Carbon Dioxide 22 mEq/L (23-29); Chloride 104 mEq/L (98-107); Glucose 101 mg/dL (70-105); Magnesium 1.3 mg/dL (1.6-2.6); Osmolality,Calculated 287 (280-300); Potassium 3.6 mEq/L (3.5-5.1); Sodium 136 mEq/L (136-145); eGFR For African Americans > 60 (> 60); eGFR For Non-African Americans > 60 (> 60)
[2021-02-21 03:54] LABS: Thyroid Stimulating Hormone 1.757 mcIU/mL (0.340-5.600)
[2021-02-21] MEDS: *HR* Enoxaparin 40 MG/0.4 ML SYRINGE SQ SCH (08:57)
[2021-02-21 10:54] LABS: Estimated Average Glucose 269 mg/dl
[2021-02-21] MEDS: *HR* OxyCODONE Immed Rel 5 MG TABLET PO PRN ×2 (13:52→20:30)
[2021-02-21] MEDS ORDERED: cefTRIAXone 1,000 MG in Water for inj. (sterile) 10 ML IVP SCH (20:00)
[2021-02-22] MEDS: *HR* OxyCODONE Immed Rel 5 MG TABLET PO PRN ×3 (04:12→19:44)
[2021-02-22 05:10] LABS: Basophils # 0.1 K/mcL (0.0-0.2); Basophils % 0.9 %; Eosinophils # 0.1 K/mcL (0.0-0.6); Eosinophils % 0.8 %; Hematocrit 30.1 % (35.3-44.9); Immature Granulocytes % 4.4 % (0-4); Lymphocytes # 2.5 K/mcL (0.6-4.6); Lymphocytes % 20.3 %; Mean Corpuscular HGB Conc 33.2 g/dL (31.6-35.5); Mean Corpuscular Hemoglobin 31.3 pg (28.0-33.3); Mean Corpuscular Volume 94.1 fL (83.0-100.0); Mean Platelet Volume 11.2 fL (9.4-12.4); Monocytes # 0.7 K/mcL (0.0-1.3); Monocytes % 5.8 %; Neutrophils # 8.4 K/mcL (1.6-8.9); Platelet Count 345 K/mcL (140-400); Red Cell Distribution Width 11.9 % (11.5-14.5); Segmented Neutrophils % 67.8 %; White Blood Count 12.4 K/mcL (4.3-11.1)
[2021-02-22 05:33] LABS: BUN/Creatinine Ratio 18 (6-26); Blood Urea Nitrogen 13 mg/dL (8-23); Calcium 8.5 mg/dL (8.6-10.3); Carbon Dioxide 23 mEq/L (23-29); Chloride 101 mEq/L (98-107); Glucose 151 mg/dL (70-105); Osmolality,Calculated 277 (280-300); Potassium 3.7 mEq/L (3.5-5.1); Sodium 132 mEq/L (136-145); eGFR For African Americans > 60 (> 60); eGFR For Non-African Americans > 60 (> 60)
[2021-02-22] MEDS: Insulin LISPRO 300 UNITS/3 ML VIAL SUBQ SCH ×4 (08:10→19:50)
[2021-02-22] MEDS: *HR* Enoxaparin 40 MG/0.4 ML SYRINGE SQ SCH (08:11)
[2021-02-22] MEDS: Nystatin Cream 15 GM TUBE TP SCH ×3 (08:11→19:49)
[2021-02-22] MEDS: Nystatin POWDER 30 GM BOTTLE TP SCH ×3 (08:12→19:49)
[2021-02-22] MEDS ORDERED: *HR* Propofol 200 MG/20 ML VIAL IVP ONE (08:26)
[2021-02-22] MEDS ORDERED: *HR* FentaNYL (PF) 100 MCG/2 ML VIAL ONE (08:26)
[2021-02-22] MEDS ORDERED: Lidocaine/EPI 1:100k 1% 50 ML VIAL ONE (08:28)
[2021-02-22] MEDS ORDERED: Lidocaine -MPF 2% 5 ML VIAL ONE (08:28)
[2021-02-22] MEDS ORDERED: Lidocaine HCL 4 ML Topical Solution (Laryng-O-Jet Kit Sterile Pak) TP ONE (08:28)
[2021-02-22] MEDS ORDERED: *HR* Succinylcholine 200 MG/10 ML VIAL IVP ONE (08:28)
[2021-02-22] MEDS ORDERED: *HR* OxyCODONE Immed Rel 5 MG TABLET PO PRN (09:36)
[2021-02-22] MEDS ORDERED: *HR* HYDROmorphone PF 0.5 MG/0.5 ML SYRINGE IVP PRN (09:36)
[2021-02-22] MEDS ORDERED: Acetaminophen 325 MG TABLET PO PRN (11:35)
[2021-02-22] MEDS ORDERED: Dextrose Gel 15 GM/37.5 ML TUBE PO PRN ×2 (11:35)
[2021-02-22] MEDS ORDERED: *HR* Dextrose 50 % in Water (Syg) 50 ML SYRINGE IVP PRN (11:35)
[2021-02-22] MEDS ORDERED: Ipratropium/Albuterol Neb 3 ML IH PRN (11:35)
[2021-02-22] MEDS ORDERED: D5% in Water 1,000 ML IVC PRN (11:35)
[2021-02-22] MEDS ORDERED: Naloxone 0.4 MG/ML INJ IVP PRN (11:35)
[2021-02-22] MEDS: Melatonin 3 MG TABLET PO SCH (19:50)
[2021-02-22] MEDS ORDERED: cefTRIAXone 1,000 MG in Water for inj. (sterile) 10 ML IVP SCH (20:00)
[2021-02-22] MEDS: Insulin DETEMIR 100 UNIT/ML X5UNITS SUBQ SCH (20:35)
[2021-02-23] MEDS ORDERED: Nicotine 14 MG PATCH.TD24 TD ONE (04:42)
[2021-02-23] MEDS: *HR* OxyCODONE Immed Rel 5 MG TABLET PO PRN ×3 (05:37→22:04)
[2021-02-23 06:33] LABS: Hematocrit 29.3 % (35.3-44.9); Hemoglobin 9.9 g/dL (11.5-15.4); Mean Corpuscular HGB Conc 33.8 g/dL (31.6-35.5); Mean Corpuscular Hemoglobin 31.5 pg (28.0-33.3); Mean Corpuscular Volume 93.3 fL (83.0-100.0); Mean Platelet Volume 10.7 fL (9.4-12.4); Platelet Count 332 K/mcL (140-400); Red Blood Count 3.14 M/mcL (3.82-4.97); Red Cell Distribution Width 11.9 % (11.5-14.5); White Blood Count 11.1 K/mcL (4.3-11.1)
[2021-02-23 06:53] LABS: BUN/Creatinine Ratio 12 (6-26); Blood Urea Nitrogen 8 mg/dL (8-23); Calcium 8.3 mg/dL (8.6-10.3); Carbon Dioxide 26 mEq/L (23-29); Chloride 101 mEq/L (98-107); Glucose 171 mg/dL (70-105); Osmolality,Calculated 278 (280-300); Potassium 3.6 mEq/L (3.5-5.1); Sodium 133 mEq/L (136-145); eGFR For African Americans > 60 (> 60); eGFR For Non-African Americans > 60 (> 60)
[2021-02-23 06:59] LABS: Anisocytosis 1+ (Not Present); Lymphocytes # 2.7 K/mcL (0.6-4.6); Monocytes # 0.4 K/mcL (0.0-1.3); Neutrophils # 7.1 K/mcL (1.6-8.9); Platelet Estimate Normal (Normal)
[2021-02-23] MEDS: Insulin LISPRO 300 UNITS/3 ML VIAL SUBQ SCH ×4 (08:26→22:08)
[2021-02-23] MEDS: *HR* Enoxaparin 40 MG/0.4 ML SYRINGE SQ SCH (08:27)
[2021-02-23] MEDS: Nystatin Cream 15 GM TUBE TP SCH ×3 (18:16→22:05)
[2021-02-23] MEDS: Nystatin POWDER 30 GM BOTTLE TP SCH ×3 (18:17→22:05)
[2021-02-23] MEDS: Gabapentin 100 MG CAPSULE PO SCH ×2 (18:18→22:04)
[2021-02-23] MEDS ORDERED: QUEtiapine Fumarate 25 MG TABLET PO SCH (21:00)
[2021-02-23] MEDS: Insulin DETEMIR 100 UNIT/ML X5UNITS SUBQ SCH (22:09)
[2021-02-23] MEDS: Melatonin 3 MG TABLET PO SCH (22:09)
[2021-02-24 00:39] LABS: Hematocrit 27.9 % (35.3-44.9); Hemoglobin 9.6 g/dL (11.5-15.4); Mean Corpuscular HGB Conc 34.4 g/dL (31.6-35.5); Mean Corpuscular Hemoglobin 32.2 pg (28.0-33.3); Mean Corpuscular Volume 93.6 fL (83.0-100.0); Mean Platelet Volume 10.9 fL (9.4-12.4); Platelet Count 334 K/mcL (140-400); Red Blood Count 2.98 M/mcL (3.82-4.97); Red Cell Distribution Width 11.7 % (11.5-14.5); White Blood Count 9.6 K/mcL (4.3-11.1)
[2021-02-24 00:53] LABS: BUN/Creatinine Ratio 19 (6-26); Blood Urea Nitrogen 13 mg/dL (8-23); Calcium 8.5 mg/dL (8.6-10.3); Carbon Dioxide 26 mEq/L (23-29); Chloride 100 mEq/L (98-107); Glucose 212 mg/dL (70-105); Osmolality,Calculated 284 (280-300); Potassium 3.8 mEq/L (3.5-5.1); Sodium 134 mEq/L (136-145); eGFR For African Americans > 60 (> 60); eGFR For Non-African Americans > 60 (> 60)
[2021-02-24] MEDS ORDERED: Nicotine 14 MG PATCH.TD24 TD SCH (01:00)
[2021-02-24] MEDS ORDERED: Vancomycin 1,500 MG/265 ML IV.SOLN IVPB SCH (02:00)
[2021-02-24] MEDS: *HR* OxyCODONE Immed Rel 5 MG TABLET PO PRN ×3 (02:10→12:34)
[2021-02-24] MEDS: Gabapentin 100 MG CAPSULE PO SCH (08:33)
[2021-02-24] MEDS: Insulin LISPRO 300 UNITS/3 ML VIAL SUBQ SCH ×2 (08:34→12:35)
[2021-02-24] MEDS: Nystatin Cream 15 GM TUBE TP SCH ×2 (08:35→14:13)
[2021-02-24] MEDS: *HR* Enoxaparin 40 MG/0.4 ML SYRINGE SQ SCH (08:35)
[2021-02-24] MEDS: Nystatin POWDER 30 GM BOTTLE TP SCH ×2 (08:35→14:13)
[2021-02-24 15:24] LABS: Adenovirus Not Detected (Not Detect); Bordetella Pertussis Not Detected (Not Detect); Chlamydophila pneumoniae Not Detected (Not Detect); Coronavirus 229E Not Detected (Not Detect); Coronavirus HKU1 Not Detected (Not Detect); Coronavirus NL63 Not Detected (Not Detect); Coronavirus OC43 Not Detected (Not Detect); Human Metapneumovirus Not Detected (Not Detect); Human Rhinovirus/Enterovirus Not Detected (Not Detect); Influenza A Subtype 2009 H1 Not Detected (Not Detect); Influenza B Not Detected (Not Detect); Mycoplasma pneumoniae Not Detected (Not Detect); Parainfluenza Virus 1 Not Detected (Not Detect); Parainfluenza Virus 2 Not Detected (Not Detect); Parainfluenza Virus 3 Not Detected (Not Detect); Parainfluenza Virus 4 Not Detected (Not Detect); Respiratory Syncytial Virus Not Detected (Not Detect); SARS-CoV-2 Not Detected (Not Detect)
[2021-02-24 15:26] VITALS: BP 108/49; PULSE 96; TEMP 98; O2SAT 92
== END 2021-02-24 18:57 | DRG 871 ==
LOC: 3BNU 19:11 → EMEROOARM 19:11 → SUATTDRO 22:30 → 3BNU 23:13
PROVIDERS: ADMIT Internal Medicine; ATTEND Internal Medicine